=== PATIENT | male | born 1975 | race African-American/Black ===

== ENCOUNTER 2019-03-27 22:13 | Inpatient (IN) | payer MEDICAID ==
[~2019-03-27] VITALS: Ht 188 cm; Wt 84.8 kg
[2019-03-27] MEDS ORDERED: SODIUM CHLORIDE 0.9% 1,000 ML IV ONE ×2 (22:48→23:36)
[2019-03-27] MEDS ORDERED: MORPHINE SULFATE 4 MG/ML CPJ (NOT FOR IM USE) IV STA (22:48)
[2019-03-27] MEDS ORDERED: ONDANSETRON HCL 4MG/2ML INJ IV STA (22:48)
[2019-03-27] MEDS ORDERED: KETOROLAC 30MG/ML VIAL IV STA (22:48)
[2019-03-27 23:05] LABS: BASOPHILS % 0.5 % (0.0-2.0); EOSINOPHILS % 0.1 % (0.0-5.0); HEMATOCRIT. 48.1 % (42.0-52.0); HEMOGLOBIN. 15.8 g/dL (14.0-18.0); LYMPHOCYTES % 8.2 % (20.0-50.0); MEAN CORPUSCULAR HEMOGLOBIN 30.9 pg (28.0-32.0); MEAN CORPUSCULAR VOLUME 93.9 fL (80.0-94.0); MEAN PLATELET VOLUME 10.3 fl (7.4-10.4); MONOCYTES % 6.9 % (2.0-8.0); NEUTROPHILS % 84.3 % (40.0-76.0); PLATELET 252 x1000/uL (130-400); RED BLOOD CELL COUNT 5.12 mill/uL (4.7-6.1)
[2019-03-27 23:11] LABS: CHLORIDE 99 mEq/L (98-107)
[2019-03-27 23:13] LABS: ETHANOL BLOOD < 10 mg/dL
[2019-03-27 23:18] LABS: INR 0.9; PROTHROMBIN TIME 9.4 sec (9.6-11.0)
[2019-03-27] MEDS ORDERED: KETOROLAC 15MG/ML VIAL IV NR (23:45)
[2019-03-28] MEDS ORDERED: INSULIN REGULAR (DRIP) 100 UNITS in SODIUM CHLORIDE 0.9% 100 ML IV NR (00:18)
[2019-03-28] MEDS ORDERED: SODIUM CHLORIDE 0.9% 1,000 ML IV STA (00:18)
[2019-03-28 00:50] LABS: BETA HYDROXYBUTYRATE 10.8 mMol/L (0.0-0.3)
[2019-03-28 00:53] LABS: CLARITY URINE CLEAR (CLEAR); COLOR URINE YELLOW (YELLOW); KETONES URINE 4+ (NEGATIVE); LEUKOCYTE ESTERASE URINE NEGATIVE (NEGATIVE); NITRITE URINE NEGATIVE (NEGATIVE); OCCULT BLOOD URINE TRACE (NEGATIVE); PROTEIN URINE 1+ (NEGATIVE); SPECIFIC GRAVITY URINE 1.018 (1.005-1.030); UROBILINOGEN URINE 0.2 E.U./dL (0.2-1.0)
[2019-03-28 01:08] LABS: *AMPHETAMINES SCREEN URINE NEGATIVE (NEGATIVE); *BARBITURATES SCREEN URINE NEGATIVE (NEGATIVE); *BENZODIAZEPINES SCREEN URINE NEGATIVE (NEGATIVE); *COCAINE SCREEN URINE NEGATIVE (NEGATIVE); METHADONE URINE SCREEN NEGATIVE (NEGATIVE); OPIATES URINE SCREEN NEGATIVE (NEGATIVE)
[2019-03-28 01:09] LABS: CANNABINOID URINE SCREEN NEGATIVE (NEGATIVE); PHENCYCLIDINE URINE SCREEN NEGATIVE (NEGATIVE)
[2019-03-28 02:15] LABS: CHLORIDE 106 mEq/L (98-107)
[2019-03-28 02:19] LABS: PHOSPHORUS 4.5 mg/dL (2.5-4.9)
[2019-03-28 04:17] LABS: CHLORIDE 110 mEq/L (98-107)
[2019-03-28 04:23] LABS: PHOSPHORUS 3.5 mg/dL (2.5-4.9)
[2019-03-28 06:14] LABS: CHLORIDE 112 mEq/L (98-107)
[2019-03-28 06:19] LABS: PHOSPHORUS 2.9 mg/dL (2.5-4.9)
[2019-03-28 11:13] LABS: CHLORIDE 115 mEq/L (98-107)
[2019-03-28 12:17] VITALS: BP 0/0
[2019-03-28] MEDS ORDERED: ACETAMINOPHEN 325MG TABLET PO PRN (12:30)
[2019-03-28] MEDS ORDERED: IPRATROPIUM/ALBUTEROL 0.5-3(2.5)MG/3ML NEB INH PRN (12:30)
[2019-03-28] MEDS ORDERED: ONDANSETRON HCL 4MG/2ML INJ IV PRN (12:30)
[2019-03-28] MEDS ORDERED: INSULIN REGULAR (DRIP) 100 UNITS in SODIUM CHLORIDE 0.9% 100 ML IV SCH ×2 (12:30→15:00)
[2019-03-28] MEDS ORDERED: HYDROCODONE/ACETAMINOPHEN 5/325MG TABLET PO PRN (12:30)
[2019-03-28] MEDS ORDERED: DOCUSATE SODIUM 100MG CAPSULE PO PRN (12:30)
[2019-03-28] MEDS ORDERED: LORAZEPAM 2MG/ML CPJ IV PRN (12:30)
[2019-03-28] MEDS ORDERED: CLONIDINE 0.1MG TABLET PO PRN (12:30)
[2019-03-28 13:00] VITALS: BP 130/78
[2019-03-28] MEDS ORDERED: DEXTROSE 50% WATER 50ML SYRINGE IV PRN ×4 (14:30→20:00)
[2019-03-28] MEDS: BLOOD SUGAR DIAGNOSTIC STRIP TEST SCH ×3 (14:44→16:30)
[2019-03-28 18:37] LABS: CHLORIDE 112 mEq/L (98-107)
[2019-03-28] MEDS: SODIUM CHLORIDE 0.9% 1,000 ML IV SCH (19:00)
[2019-03-28 19:18] LABS: HEPATITIS B SURFACE ANTIGEN NEGATIVE
[2019-03-28 19:47] LABS: HEPATITIS A AB IGM NEGATIVE (NEGATIVE)
[2019-03-28 20:17] LABS: CHLORIDE 111 mEq/L (98-107)
[2019-03-28] MEDS: INSULIN GLARGINE UD 100 UNITS/ML SYR SUBCUT SCH (22:35)
[2019-03-29 05:49] LABS: BASOPHILS % 0.2 % (0.0-2.0); EOSINOPHILS % 0.1 % (0.0-5.0); HEMOGLOBIN. 13.3 g/dL (14.0-18.0); LYMPHOCYTES % 14.6 % (20.0-50.0); MEAN CORPUSCULAR HEMOGLOBIN 30.2 pg (28.0-32.0); MEAN CORPUSCULAR VOLUME 90.8 fL (80.0-94.0); MEAN PLATELET VOLUME 10.6 fl (7.4-10.4); MONOCYTES % 12.9 % (2.0-8.0); NEUTROPHILS % 72.2 % (40.0-76.0); PLATELET 176 x1000/uL (130-400); RED CELL DISTRIBUTION WIDTH 13.6 % (11.6-14.6)
[2019-03-29] MEDS: BLOOD SUGAR DIAGNOSTIC STRIP TEST SCH ×4 (06:07→21:15)
[2019-03-29 06:10] LABS: CHLORIDE 106 mEq/L (98-107)
[2019-03-29] MEDS: INSULIN LISPRO 100 UNITS/ML SUBCUT SCH ×4 (06:12→21:56)
[2019-03-29 06:26] LABS: LDL CHOLESTEROL 106 mg/dL (5-100)
[2019-03-29 06:27] LABS: HDL CHOLESTEROL 30 mg/dL (40-59)
[2019-03-29 09:00] VITALS: BP 118/58
[2019-03-29 10:00] VITALS: BP 135/71
[2019-03-29] MEDS: INSULIN GLARGINE UD 100 UNITS/ML SYR SUBCUT SCH ×2 (10:27→22:00)
[2019-03-29 12:00] VITALS: BP 119/62
[2019-03-29 15:08] LABS: CHLORIDE 104 mEq/L (98-107)
[2019-03-29 16:00] VITALS: BP 113/60
[2019-03-29] MEDS ORDERED: LANTUSUD SUBCUT (16:18)
[2019-03-29 20:00] VITALS: BP 118/70
[2019-03-29] MEDS: SODIUM CHLORIDE 0.9% 1,000 ML IV SCH (21:40)
[2019-03-30] VITALS: BP 123/51
[2019-03-30 04:00] VITALS: BP 128/56
[2019-03-30 05:16] LABS: HIV SCREEN 4G Non Reactive (Non Reactive)
[2019-03-30] MEDS: BLOOD SUGAR DIAGNOSTIC STRIP TEST SCH ×2 (06:19→12:13)
[2019-03-30 08:00] VITALS: BP 108/69
[2019-03-30] MEDS: INSULIN LISPRO 100 UNITS/ML SUBCUT SCH ×2 (09:05→12:18)
[2019-03-30] MEDS: INSULIN GLARGINE UD 100 UNITS/ML SYR SUBCUT SCH (10:00)
[2019-03-30 10:38] VITALS: BP 108/69
[2019-03-30] MEDS ORDERED: LANTUSUD SUBCUT (15:54)
[2019-03-30] MEDS ORDERED: INSULIN GLARGINE UD 100 UNITS/ML SYR SUBCUT NR (16:30)
[2019-03-30] MEDS ORDERED: INSULIN GLARGINE UD 100 UNITS/ML SYR SUBCUT SCH (22:00)
== END 2019-03-30 13:49 | disposition home or self-care (01) | DRG 420 ==
LOC: ER 22:13 → MICUSO 03-28 00:32 → EDBEDREQ 03-28 00:43 → EDBEDREQDT 03-28 00:43 → EDBEDREQTM 03-28 00:43 → ENRESERV 03-28 11:21 → 6EST 03-29 23:35
PROVIDERS: ADMIT Internal Medicine; ATTEND Internal Medicine
DX: E11.10 Type 2 diabetes mellitus with ketoacidosis without coma (principal); F20.9 Schizophrenia, unspecified; F31.9 Bipolar disorder, unspecified; E86.0 Dehydration; K31.89 Other diseases of stomach and duodenum; N32.89 Other specified disorders of bladder; I10 Essential (primary) hypertension; R74.0 Nonspecific elevation of levels of transaminase and lactic acid dehydrogenase [LDH]; E05.90 Thyrotoxicosis, unspecified without thyrotoxic crisis or storm; Z79.899 Other long term (current) drug therapy; Z79.4 Long term (current) use of insulin; Z91.14 Patient's other noncompliance with medication regimen
CPT/HCPCS: 36415; 74176; 80048; 80061; 80305; 80320; 82010; 82150; 82962; 83036; 83605; 83735; 84100; 84443; 84484; 86705; 86709; 86803; 87340; 87389; 93005; 96365; 96375; 99291; J1815; J1885; J2270; J2405; J7030; J7050; G0480

== ENCOUNTER 2021-11-22 15:08 | Inpatient (IN) | payer MEDICAID, OTHER ==
[~2021-11-22] VITALS: Ht 180.3 cm; Wt 61.7 kg
[~2021-11-22 15:08] MED LIST: LANTUSUD SUBCUT
[2021-11-22] MEDS ORDERED: CALCIUM GLUCONATE 1GM PREMIX 50 ML IV ONE (15:30)
[2021-11-22] MEDS ORDERED: LACTATED RINGERS 1,000 ML IV SCH ×2 (15:30)
[2021-11-22] MEDS ORDERED: FENTANYL CITRATE/PF 2,500 MCG in DEXT 5% WATER 200 ML IV PRN (15:45)
[2021-11-22] MEDS ORDERED: MIDAZOLAM 100MG/100ML PREMIX IV PRN (15:45)
[2021-11-22] MEDS ORDERED: NOREPINEPHRINE 8MG/250ML PMX 250 ML IV ONE (15:45)
[2021-11-22 15:48] LABS: HEMATOCRIT. 44.1 % (42.0-52.0); HEMOGLOBIN. 13.2 g/dL (14.0-18.0); MEAN CORPUSCULAR HEMOGLOBIN 28.1 pg (28.0-32.0); MEAN CORPUSCULAR VOLUME 93.7 fL (80.0-94.0); MEAN PLATELET VOLUME 9.7 fl (7.4-10.4); PLATELET 391 x1000/uL (130-400); RED BLOOD CELL COUNT 4.71 mill/uL (4.7-6.1); RED CELL DISTRIBUTION WIDTH 14.1 % (11.6-14.6)
[2021-11-22 15:57] LABS: BG CARBOXYHEMOGLOBIN 0.5 % (0.5-1.5); BG DEOXYHEMOGLOBIN 0.2 % (0.0-5.0); BG FRACTION INSPIRED OXYGEN 100; BG HCO3 ACT 4.1 mmol/L (22.0-26.0); BG METHEMOGLOBIN 0.4 % (0.0-1.5); BG OXYGEN SATURATION 99.8 % (92.0-98.5); BG OXYHEMOGLOBIN 98.9 % (94.0-97.0); BG PCO2 30.6 mmHg (35.0-45.0); BG PH 6.743 (7.350-7.450); BG PO2 547.5 mmHg (75.0-100.0); BG TOTAL HEMOGLOBIN 12.8 g/dL (12.0-18.0); BG VENT MODE VENT - AC
[2021-11-22] MEDS ORDERED: MIDAZOLAM HCL 100 MG in SODIUM CHLORIDE 0.9% 100 ML IV PRN (16:00)
[2021-11-22 16:06] LABS: CLARITY URINE CLEAR (CLEAR); COLOR URINE YELLOW (YELLOW); KETONES URINE 3+ (NEGATIVE); LEUKOCYTE ESTERASE URINE NEGATIVE (NEGATIVE); NITRITE URINE NEGATIVE (NEGATIVE); OCCULT BLOOD URINE 1+ (NEGATIVE); PROTEIN URINE 2+ (NEGATIVE); SPECIFIC GRAVITY URINE 1.017 (1.005-1.030); UROBILINOGEN URINE 0.2 E.U./dL (0.2-1.0)
[2021-11-22 16:13] LABS: CHLORIDE 100 mEq/L (98-107)
[2021-11-22 16:17] LABS: *AMPHETAMINES SCREEN URINE NEGATIVE (NEGATIVE); *BARBITURATES SCREEN URINE NEGATIVE (NEGATIVE)
[2021-11-22 16:17] LABS: ETHANOL BLOOD < 10 mg/dL
[2021-11-22 16:18] LABS: *BENZODIAZEPINES SCREEN URINE NEGATIVE (NEGATIVE); *COCAINE SCREEN URINE NEGATIVE (NEGATIVE); CANNABINOID URINE SCREEN NEGATIVE (NEGATIVE); METHADONE URINE SCREEN NEGATIVE (NEGATIVE); OPIATES URINE SCREEN NEGATIVE (NEGATIVE); PHENCYCLIDINE URINE SCREEN NEGATIVE (NEGATIVE)
[2021-11-22] MEDS ORDERED: METRONIDAZOLE 500 MG PREMIX 100 ML IV ONE (16:30)
[2021-11-22] MEDS ORDERED: VANCOMYCIN 1G PREMIX 200 ML IV ONE (16:30)
[2021-11-22] MEDS ORDERED: HYDROCORTISONE SOD SUCCINATE 100 MG/2 ML VIAL IV ONE (16:30)
[2021-11-22] MEDS ORDERED: PIPERACILLIN/TAZ 3.375G PREMIX 50 ML IV ONE (16:30)
[2021-11-22] MEDS ORDERED: SODIUM BICARBONATE 8.4% 1 MEQ/ML 50ML SYR IV ONE ×3 (16:30→19:15)
[2021-11-22] MEDS ORDERED: SODIUM CHLORIDE 0.9% 1000ML BAG (SEPSIS BOLUS) IV ONE (16:30)
[2021-11-22] MEDS ORDERED: DEXTROSE 50% WATER 50ML SYRINGE IV PRN (16:45)
[2021-11-22] MEDS ORDERED: VANCOMYCIN 1GM PMX (XELLIA) 200 ML IV NR (16:45)
[2021-11-22] MEDS ORDERED: VANCOMYCIN 1G PREMIX 200 ML IV NR (16:45)
[2021-11-22] MEDS ORDERED: INSULIN REGULAR 100U/100ML PMX 100 ML IV SCH (17:00)
[2021-11-22] MEDS: SODIUM BICARBONATE 150 MEQ in SODIUM CHLORIDE 0.45% 1,000 ML IV SCH (17:32)
[2021-11-22] MEDS: BLOOD SUGAR DIAGNOSTIC STRIP TEST SCH ×7 (17:32→23:00)
[2021-11-22 17:54] LABS: BETA HYDROXYBUTYRATE 13.5 mMol/L (0.0-0.3)
[2021-11-22 18:50] LABS: BG BASE EXCESS -27.4 mmol/L (-2.0-2.0); BG CARBOXYHEMOGLOBIN 0.4 % (0.5-1.5); BG DEOXYHEMOGLOBIN 0.3 % (0.0-5.0); BG FRACTION INSPIRED OXYGEN 100; BG HCO3 ACT 5.6 mmol/L (22.0-26.0); BG METHEMOGLOBIN 0.4 % (0.0-1.5); BG OXYGEN SATURATION 99.7 % (92.0-98.5); BG OXYHEMOGLOBIN 98.9 % (94.0-97.0); BG PCO2 32.2 mmHg (35.0-45.0); BG PH 6.855 (7.350-7.450); BG PO2 > 602.7 mmHg (75.0-100.0); BG SAMPLE SITE RIGHT RADIAL; BG TOTAL HEMOGLOBIN 12.6 g/dL (12.0-18.0); BG VENT MODE VENT - AC
[2021-11-22 20:16] LABS: PLATELET ESTIMATE NORMAL
[2021-11-23 00:25] LABS: CHLORIDE 112 mEq/L (98-107)
[2021-11-23] MEDS ORDERED: SODIUM CHLORIDE 0.9% 1,000 ML IV SCH (00:45)
[2021-11-23] MEDS: BLOOD SUGAR DIAGNOSTIC STRIP TEST SCH ×18 (01:00→21:24)
[2021-11-23] MEDS ORDERED: NOREPINEPHRINE 8 MG in DEXTROSE 5% WATER 250 ML IV PRN (01:00)
[2021-11-23] MEDS ORDERED: INSULIN REGULAR (DRIP) 100 UNITS in SODIUM CHLORIDE 0.9% 100 ML IV PRN (01:00)
[2021-11-23] MEDS ORDERED: INSULIN REGULAR 100U/100ML PMX 100 ML IV PRN (01:00)
[2021-11-23] MEDS: SODIUM BICARBONATE 150 MEQ in SODIUM CHLORIDE 0.45% 1,000 ML IV SCH ×2 (03:00→11:46)
[2021-11-23 03:21] LABS: CHLORIDE 113 mEq/L (98-107)
[2021-11-23] MEDS ORDERED: POTASSIUM CHLORIDE 20MEQ/PACKET NG SCH (05:00)
[2021-11-23] MEDS ORDERED: DEXTROSE 5% WATER 1,000 ML IV SCH (05:00)
[2021-11-23 08:23] LABS: CHLORIDE 117 mEq/L (98-107)
[2021-11-23 08:59] LABS: PHOSPHORUS 0.4 mg/dL (2.5-4.9)
[2021-11-23] MEDS ORDERED: MIDAZOLAM 100MG/100ML PMX 100 ML IV PRN (09:00)
[2021-11-23] MEDS: ENOXAPARIN 40MG/0.4ML SYR SUBCUT SCH (09:02)
[2021-11-23] MEDS ORDERED: CLONIDINE 0.1MG TABLET PO PRN (09:45)
[2021-11-23] MEDS ORDERED: ACETAMINOPHEN 650MG/20.3ML UDC GT PRN ×2 (09:45)
[2021-11-23] MEDS ORDERED: ONDANSETRON HCL 4MG/2ML INJ IV PRN (09:45)
[2021-11-23] MEDS ORDERED: IPRATROPIUM/ALBUTEROL 0.5-3(2.5)MG/3ML NEB HHN PRN (09:45)
[2021-11-23] MEDS ORDERED: CEFTRIAXONE 1 G PREMIX 50 ML IV SCH (10:00)
[2021-11-23] MEDS ORDERED: DEXTROSE 50% WATER 50ML SYRINGE IV PRN (10:30)
[2021-11-23] MEDS: METRONIDAZOLE 500 MG PREMIX 100 ML IV SCH ×2 (10:35→18:12)
[2021-11-23] MEDS: INSULIN GLARGINE UD 100 UNITS/ML SYR SUBCUT SCH ×3 (11:00→22:27)
[2021-11-23] MEDS ORDERED: POTASSIUM PHOS,M-BASIC-D-BASIC 30 MMOL in SODIUM CHLORIDE 0.9% 500 ML IV SCH (11:00)
[2021-11-23 11:36] LABS: CHLORIDE 115 mEq/L (98-107)
[2021-11-23 11:41] LABS: AMYLASE 82 IU/L (25-115)
[2021-11-23 11:52] LABS: BG CARBOXYHEMOGLOBIN 0.3 % (0.5-1.5); BG DEOXYHEMOGLOBIN 1.2 % (0.0-5.0); BG FRACTION INSPIRED OXYGEN 60; BG HCO3 ACT 25.3 mmol/L (22.0-26.0); BG METHEMOGLOBIN 0.6 % (0.0-1.5); BG OXYGEN SATURATION 98.8 % (92.0-98.5); BG OXYHEMOGLOBIN 97.9 % (94.0-97.0); BG PCO2 35.2 mmHg (35.0-45.0); BG PH 7.475 (7.350-7.450); BG PO2 325.4 mmHg (75.0-100.0); BG SAMPLE SITE RIGHT RADIAL; BG TOTAL HEMOGLOBIN 11.5 g/dL (12.0-18.0); BG VENT MODE VENT - AC
[2021-11-23] MEDS: INSULIN LISPRO 100 UNITS/ML SUBCUT SCH ×3 (12:00→21:00)
[2021-11-23] MEDS: SODIUM CHLORIDE 0.45% 1,000 ML IV SCH (14:15)
[2021-11-23] MEDS: MIDAZOLAM HCL 100 MG in SODIUM CHLORIDE 0.9% 100 ML IV PRN (17:45)
[2021-11-24] VITALS (42 sets, daily range): BP systolic 94–123; BP diastolic 69–91
[2021-11-24] MEDS: SODIUM CHLORIDE 0.45% 1,000 ML IV SCH (01:23)
[2021-11-24] MEDS: METRONIDAZOLE 500 MG PREMIX 100 ML IV SCH ×4 (03:08→21:25)
[2021-11-24] MEDS: BLOOD SUGAR DIAGNOSTIC STRIP TEST SCH ×4 (04:00→21:29)
[2021-11-24 05:15] LABS: HEMATOCRIT. 34.9 % (42.0-52.0); HEMOGLOBIN. 11.6 g/dL (14.0-18.0); MEAN CORPUSCULAR HEMOGLOBIN 28.3 pg (28.0-32.0); MEAN PLATELET VOLUME 8.6 fl (7.4-10.4); PLATELET 237 x1000/uL (130-400); RED CELL DISTRIBUTION WIDTH 13.5 % (11.6-14.6)
[2021-11-24 05:29] LABS: CHLORIDE 115 mEq/L (98-107)
[2021-11-24] MEDS: INSULIN LISPRO 100 UNITS/ML SUBCUT SCH ×4 (07:20→21:25)
[2021-11-24] MEDS ORDERED: POTASSIUM CHLORIDE INJ 60 MEQ in DEXT 5% WATER 250 ML IV ONE ×2 (07:30→22:00)
[2021-11-24] MEDS: DEXTROSE 5% WATER 1,000 ML IV SCH ×2 (08:05→17:21)
[2021-11-24] MEDS: KCL 20MEQ/100ML X 2 FOR TOTAL KCL 40MEQ/200ML IV SCH ×4 (08:06→22:41)
[2021-11-24 08:20] LABS: BG BASE EXCESS 2.4 mmol/L (-2.0-2.0); BG CARBOXYHEMOGLOBIN 0.3 % (0.5-1.5); BG DEOXYHEMOGLOBIN 1.4 % (0.0-5.0); BG FRACTION INSPIRED OXYGEN 40; BG HCO3 ACT 26.7 mmol/L (22.0-26.0); BG METHEMOGLOBIN 0.1 % (0.0-1.5); BG OXYGEN SATURATION 98.6 % (92.0-98.5); BG OXYHEMOGLOBIN 98.2 % (94.0-97.0); BG PCO2 39.9 mmHg (35.0-45.0); BG PH 7.443 (7.350-7.450); BG PO2 193.4 mmHg (75.0-100.0); BG SAMPLE SITE RIGHT RADIAL; BG TOTAL HEMOGLOBIN 11.1 g/dL (12.0-18.0); BG VENT MODE VENT - AC
[2021-11-24 09:48] LABS: PLATELET ESTIMATE NORMAL
[2021-11-24] MEDS: CEFTRIAXONE 1,000 MG in DEXTROSE 5% WATER 50 ML IV SCH (10:42)
[2021-11-24] MEDS: ENOXAPARIN 40MG/0.4ML SYR SUBCUT SCH (10:42)
[2021-11-24] MEDS: INSULIN GLARGINE UD 100 UNITS/ML SYR SUBCUT SCH ×2 (11:18→21:24)
[2021-11-24] MEDS ORDERED: FENTANYL CITRATE/PF 2,500 MCG in SODIUM CHLORIDE 0.9% 200 ML IV PRN (11:30)
[2021-11-24] MEDS ORDERED: METRONIDAZOLE 500 MG PREMIX 100 ML IV SCH (12:00)
[2021-11-24] MEDS: PANTOPRAZOLE SODIUM 40 MG/VIAL IV SCH (13:01)
[2021-11-24] MEDS ORDERED: VANCOMYCIN 1.25GM PMX (XELLIA) 250 ML IV SCH (14:00)
[2021-11-24] MEDS: MIDAZOLAM HCL 100 MG in SODIUM CHLORIDE 0.9% 100 ML IV PRN (22:43)
[2021-11-25] VITALS (77 sets, daily range): BP systolic 97–139; BP diastolic 73–110
[2021-11-25] MEDS ORDERED: VANCOMYCIN 1GM PMX (XELLIA) 200 ML IV SCH
[2021-11-25] MEDS: KCL 20MEQ/100ML X 2 FOR TOTAL KCL 40MEQ/200ML IV SCH ×2 (00:21→03:02)
[2021-11-25] MEDS: DEXTROSE 5% WATER 1,000 ML IV SCH ×3 (03:06→22:35)
[2021-11-25] MEDS: METRONIDAZOLE 500 MG PREMIX 100 ML IV SCH ×3 (05:56→21:09)
[2021-11-25 06:21] LABS: BASOPHILS % 0.6 % (0.0-2.0); EOSINOPHILS % 0.2 % (0.0-5.0); HEMATOCRIT. 31.7 % (42.0-52.0); HEMOGLOBIN. 10.6 g/dL (14.0-18.0); LYMPHOCYTES % 9.2 % (20.0-50.0); MEAN CORPUSCULAR HEMOGLOBIN 28.4 pg (28.0-32.0); MEAN CORPUSCULAR VOLUME 85.3 fL (80.0-94.0); MEAN PLATELET VOLUME 8.9 fl (7.4-10.4); MONOCYTES % 9.5 % (2.0-8.0); NEUTROPHILS % 80.5 % (40.0-76.0); PLATELET 198 x1000/uL (130-400); RED BLOOD CELL COUNT 3.72 mill/uL (4.7-6.1); RED CELL DISTRIBUTION WIDTH 13.8 % (11.6-14.6)
[2021-11-25 06:36] LABS: CHLORIDE 115 mEq/L (98-107)
[2021-11-25] MEDS: BLOOD SUGAR DIAGNOSTIC STRIP TEST SCH ×4 (07:50→21:01)
[2021-11-25] MEDS: INSULIN LISPRO 100 UNITS/ML SUBCUT SCH ×4 (08:20→21:00)
[2021-11-25] MEDS: PANTOPRAZOLE SODIUM 40 MG/VIAL IV SCH (08:29)
[2021-11-25] MEDS: ENOXAPARIN 40MG/0.4ML SYR SUBCUT SCH (08:29)
[2021-11-25] MEDS ORDERED: POTASSIUM PHOS,M-BASIC-D-BASIC 30 MMOL in DEXT 5% WATER 500 ML IV SCH (09:00)
[2021-11-25 09:13] LABS: BG BASE EXCESS 2.7 mmol/L (-2.0-2.0); BG CARBOXYHEMOGLOBIN 0.3 % (0.5-1.5); BG DEOXYHEMOGLOBIN 1.2 % (0.0-5.0); BG FRACTION INSPIRED OXYGEN 35; BG METHEMOGLOBIN 0.1 % (0.0-1.5); BG OXYGEN SATURATION 98.8 % (92.0-98.5); BG OXYHEMOGLOBIN 98.4 % (94.0-97.0); BG PH 7.489 (7.350-7.450); BG PO2 187.3 mmHg (75.0-100.0); BG SAMPLE SITE LEFT RADIAL; BG TOTAL HEMOGLOBIN 9.9 g/dL (12.0-18.0); BG TOTAL RESPIRATORY RATE 14 b/min; BG VENT MODE VENT - AC
[2021-11-25] MEDS: CEFTRIAXONE 1,000 MG in DEXTROSE 5% WATER 50 ML IV SCH (09:35)
[2021-11-25] MEDS: INSULIN GLARGINE UD 100 UNITS/ML SYR SUBCUT SCH ×2 (09:38→21:54)
[2021-11-25] MEDS: METOCLOPRAMIDE HCL 10MG/2ML VIAL IV SCH (17:45)
[2021-11-25] MEDS: DOCUSATE SODIUM SUGAR FREE 100MG/10ML UDC NG SCH (17:45)
[2021-11-25] MEDS: VANCOMYCIN 1GM PMX (XELLIA) 200 ML IV SCH (21:09)
[2021-11-26] VITALS (94 sets, daily range): BP systolic 107–141; BP diastolic 40–96
[2021-11-26] MEDS: METOCLOPRAMIDE HCL 10MG/2ML VIAL IV SCH ×4 (00:12→18:15)
[2021-11-26] MEDS: METRONIDAZOLE 500 MG PREMIX 100 ML IV SCH ×3 (05:22→21:05)
[2021-11-26 06:09] LABS: BASOPHILS % 0.8 % (0.0-2.0); EOSINOPHILS % 1.6 % (0.0-5.0); HEMATOCRIT. 30.3 % (42.0-52.0); HEMOGLOBIN. 10.4 g/dL (14.0-18.0); LYMPHOCYTES % 11.5 % (20.0-50.0); MEAN CORPUSCULAR HEMOGLOBIN 29.3 pg (28.0-32.0); MEAN CORPUSCULAR VOLUME 85.2 fL (80.0-94.0); MEAN PLATELET VOLUME 9.1 fl (7.4-10.4); NEUTROPHILS % 74.1 % (40.0-76.0); PLATELET 181 x1000/uL (130-400); RED BLOOD CELL COUNT 3.55 mill/uL (4.7-6.1); RED CELL DISTRIBUTION WIDTH 13.9 % (11.6-14.6)
[2021-11-26 06:17] LABS: CHLORIDE 110 mEq/L (98-107)
[2021-11-26 06:28] LABS: PHOSPHORUS 2.1 mg/dL (2.5-4.9)
[2021-11-26] MEDS: BLOOD SUGAR DIAGNOSTIC STRIP TEST SCH ×4 (08:28→23:42)
[2021-11-26] MEDS ORDERED: MAGNESIUM 2 G PREMIX 50 ML IV NR (08:30)
[2021-11-26 08:51] LABS: BG BASE EXCESS 3.6 mmol/L (-2.0-2.0); BG DEOXYHEMOGLOBIN 1.2 % (0.0-5.0); BG FRACTION INSPIRED OXYGEN 35; BG METHEMOGLOBIN 0.3 % (0.0-1.5); BG OXYGEN SATURATION 98.8 % (92.0-98.5); BG OXYHEMOGLOBIN 98.5 % (94.0-97.0); BG PCO2 36.1 mmHg (35.0-45.0); BG PH 7.491 (7.350-7.450); BG PO2 164.4 mmHg (75.0-100.0); BG SAMPLE SITE LEFT BRACHIAL; BG TOTAL RESPIRATORY RATE 15 b/min; BG VENT MODE VENT - AC
[2021-11-26] MEDS ORDERED: POTASSIUM PHOS,M-BASIC-D-BASIC 20 MMOL in DEXT 5% WATER 243.3333 ML IV SCH (09:00)
[2021-11-26] MEDS: ENOXAPARIN 40MG/0.4ML SYR SUBCUT SCH (09:06)
[2021-11-26] MEDS: PANTOPRAZOLE SODIUM 40 MG/VIAL IV SCH (09:06)
[2021-11-26] MEDS: CEFTRIAXONE 1,000 MG in DEXTROSE 5% WATER 50 ML IV SCH (09:06)
[2021-11-26] MEDS: DOCUSATE SODIUM SUGAR FREE 100MG/10ML UDC NG SCH ×2 (09:06→18:15)
[2021-11-26] MEDS: INSULIN LISPRO 100 UNITS/ML SUBCUT SCH ×4 (09:07→23:42)
[2021-11-26] MEDS: INSULIN GLARGINE UD 100 UNITS/ML SYR SUBCUT SCH ×2 (09:07→21:03)
[2021-11-26 12:41] LABS: BG BASE EXCESS 3.4 mmol/L (-2.0-2.0); BG CARBOXYHEMOGLOBIN 0.3 % (0.5-1.5); BG DEOXYHEMOGLOBIN 1.8 % (0.0-5.0); BG FRACTION INSPIRED OXYGEN 30; BG HCO3 ACT 26.7 mmol/L (22.0-26.0); BG METHEMOGLOBIN 0.3 % (0.0-1.5); BG OXYGEN SATURATION 98.2 % (92.0-98.5); BG OXYHEMOGLOBIN 97.6 % (94.0-97.0); BG PCO2 35.5 mmHg (35.0-45.0); BG PH 7.494 (7.350-7.450); BG PO2 127.8 mmHg (75.0-100.0); BG SAMPLE SITE LEFT RADIAL; BG TOTAL HEMOGLOBIN 10.5 g/dL (12.0-18.0); BG TOTAL RESPIRATORY RATE 16 b/min; BG VENT MODE VENT - CPAP
[2021-11-26] MEDS: VANCOMYCIN 1GM PMX (XELLIA) 200 ML IV SCH (13:57)
[2021-11-27] VITALS (21 sets, daily range): BP systolic 99–155; BP diastolic 64–88
[2021-11-27] MEDS: METOCLOPRAMIDE HCL 10MG/2ML VIAL IV SCH ×3 (00:15→12:00)
[2021-11-27 05:41] LABS: BASOPHILS % 0.8 % (0.0-2.0); EOSINOPHILS % 1.3 % (0.0-5.0); HEMATOCRIT. 30.6 % (42.0-52.0); HEMOGLOBIN. 10.3 g/dL (14.0-18.0); LYMPHOCYTES % 11.6 % (20.0-50.0); MEAN CORPUSCULAR HEMOGLOBIN 28.8 pg (28.0-32.0); MEAN CORPUSCULAR VOLUME 85.5 fL (80.0-94.0); MEAN PLATELET VOLUME 8.9 fl (7.4-10.4); MONOCYTES % 14.5 % (2.0-8.0); NEUTROPHILS % 71.8 % (40.0-76.0); PLATELET 216 x1000/uL (130-400); RED BLOOD CELL COUNT 3.58 mill/uL (4.7-6.1)
[2021-11-27] MEDS: INSULIN LISPRO 100 UNITS/ML SUBCUT SCH ×4 (05:54→21:24)
[2021-11-27] MEDS: BLOOD SUGAR DIAGNOSTIC STRIP TEST SCH ×4 (05:54→20:25)
[2021-11-27] MEDS: METRONIDAZOLE 500 MG PREMIX 100 ML IV SCH ×3 (05:59→21:21)
[2021-11-27 06:01] LABS: CHLORIDE 113 mEq/L (98-107)
[2021-11-27 06:09] LABS: PHOSPHORUS 2.7 mg/dL (2.5-4.9)
[2021-11-27] MEDS: ENOXAPARIN 40MG/0.4ML SYR SUBCUT SCH (08:24)
[2021-11-27] MEDS: VANCOMYCIN 1GM PMX (XELLIA) 200 ML IV SCH (08:24)
[2021-11-27] MEDS: PANTOPRAZOLE SODIUM 40 MG/VIAL IV SCH (08:24)
[2021-11-27] MEDS: DOCUSATE SODIUM SUGAR FREE 100MG/10ML UDC NG SCH ×2 (08:25→16:05)
[2021-11-27] MEDS ORDERED: POTASSIUM CHLORIDE 20MEQ/PACKET PO NR (09:00)
[2021-11-27] MEDS: INSULIN GLARGINE UD 100 UNITS/ML SYR SUBCUT SCH ×2 (10:00→21:23)
[2021-11-27] MEDS: CEFTRIAXONE 1,000 MG in DEXTROSE 5% WATER 50 ML IV SCH (11:08)
[2021-11-28] VITALS: BP 112/73
[2021-11-28] MEDS: VANCOMYCIN 1GM PMX (XELLIA) 200 ML IV SCH (01:56)
[2021-11-28 04:00] VITALS: BP 118/76
[2021-11-28 04:07] LABS: HIV SCREEN 4G Non Reactive (Non Reactive)
[2021-11-28] MEDS: METRONIDAZOLE 500 MG PREMIX 100 ML IV SCH (05:10)
[2021-11-28] MEDS: BLOOD SUGAR DIAGNOSTIC STRIP TEST SCH ×4 (05:58→21:00)
[2021-11-28] MEDS: INSULIN LISPRO 100 UNITS/ML SUBCUT SCH ×4 (05:58→23:45)
[2021-11-28 06:02] LABS: HEMATOCRIT. 30.2 % (42.0-52.0); MEAN CORPUSCULAR HEMOGLOBIN 28.5 pg (28.0-32.0); PLATELET 248 x1000/uL (130-400); RED BLOOD CELL COUNT 3.51 mill/uL (4.7-6.1); RED CELL DISTRIBUTION WIDTH 14.1 % (11.6-14.6)
[2021-11-28 08:00] VITALS: BP_SYST 115; BP_SYST 168; BP_DIAS 62; BP_DIAS 77
[2021-11-28] MEDS: DOCUSATE SODIUM SUGAR FREE 100MG/10ML UDC NG SCH ×2 (09:00→17:00)
[2021-11-28] MEDS: ENOXAPARIN 40MG/0.4ML SYR SUBCUT SCH (09:28)
[2021-11-28] MEDS: PANTOPRAZOLE SODIUM 40 MG/VIAL IV SCH (09:28)
[2021-11-28] MEDS: PSYLLIUM SEED PACKET PO SCH ×3 (10:00→17:21)
[2021-11-28 10:57] LABS: CHLORIDE 117 mEq/L (98-107)
[2021-11-28 12:00] VITALS: BP 108/68
[2021-11-28 12:28] LABS: NUCLEATED RED BLOOD CELLS 1 /100 WBC; PLATELET ESTIMATE NORMAL
[2021-11-28] MEDS ORDERED: POTASSIUM CHLORIDE 20MEQ/PACKET PO NR (13:00)
[2021-11-28] MEDS: METRONIDAZOLE 500MG TABLET PO SCH ×2 (14:22→21:42)
[2021-11-28] MEDS: SODIUM CHL 0.45% + KCL 20MEQ/L 1,000 ML IV SCH (14:58)
[2021-11-28 16:00] VITALS: BP 124/82
[2021-11-28 20:00] VITALS: BP 102/69
[2021-11-28] MEDS: INSULIN GLARGINE UD 100 UNITS/ML SYR SUBCUT SCH (22:00)
[2021-11-29 00:27] VITALS: BP 112/64
[2021-11-29] MEDS: SODIUM CHL 0.45% + KCL 20MEQ/L 1,000 ML IV SCH ×2 (03:04→17:09)
[2021-11-29 04:00] VITALS: BP 124/87
[2021-11-29] MEDS: VANCOMYCIN 750MG PREMIX 150 ML IV SCH ×2 (05:12→23:12)
[2021-11-29] MEDS: BLOOD SUGAR DIAGNOSTIC STRIP TEST SCH ×4 (06:16→21:39)
[2021-11-29] MEDS: INSULIN LISPRO 100 UNITS/ML SUBCUT SCH ×4 (06:26→22:16)
[2021-11-29 08:00] VITALS: BP 107/76
[2021-11-29 08:33] LABS: HEMATOCRIT. 28.8 % (42.0-52.0); HEMOGLOBIN. 9.7 g/dL (14.0-18.0); MEAN CORPUSCULAR HEMOGLOBIN 29.1 pg (28.0-32.0); MEAN CORPUSCULAR VOLUME 86.7 fL (80.0-94.0); PLATELET 288 x1000/uL (130-400); RED BLOOD CELL COUNT 3.33 mill/uL (4.7-6.1); RED CELL DISTRIBUTION WIDTH 14.2 % (11.6-14.6)
[2021-11-29] MEDS: PANTOPRAZOLE SODIUM 40 MG/VIAL IV SCH (08:34)
[2021-11-29] MEDS: PSYLLIUM SEED PACKET PO SCH ×3 (08:35→17:09)
[2021-11-29] MEDS: ENOXAPARIN 40MG/0.4ML SYR SUBCUT SCH (08:35)
[2021-11-29] MEDS: DOCUSATE SODIUM SUGAR FREE 100MG/10ML UDC NG SCH ×2 (08:42→17:09)
[2021-11-29 08:44] LABS: CHLORIDE 112 mEq/L (98-107)
[2021-11-29 09:20] LABS: PLATELET ESTIMATE NORMAL
[2021-11-29 12:00] VITALS: BP 111/73
[2021-11-29 16:00] VITALS: BP 110/70
[2021-11-29 20:00] VITALS: BP 100/64
[2021-11-29] MEDS: INSULIN GLARGINE UD 100 UNITS/ML SYR SUBCUT SCH (22:14)
[2021-11-30] VITALS: BP 110/69
[2021-11-30 04:00] VITALS: BP 97/62
[2021-11-30] MEDS: INSULIN LISPRO 100 UNITS/ML SUBCUT SCH ×4 (05:51→21:26)
[2021-11-30] MEDS: BLOOD SUGAR DIAGNOSTIC STRIP TEST SCH ×4 (05:52→21:27)
[2021-11-30 08:00] VITALS: BP 119/84
[2021-11-30] MEDS: PSYLLIUM SEED PACKET PO SCH ×3 (08:47→16:50)
[2021-11-30] MEDS: DOCUSATE SODIUM SUGAR FREE 100MG/10ML UDC NG SCH ×2 (08:48→16:50)
[2021-11-30] MEDS: PANTOPRAZOLE SODIUM 40 MG/VIAL IV SCH (08:48)
[2021-11-30] MEDS: ENOXAPARIN 40MG/0.4ML SYR SUBCUT SCH (08:49)
[2021-11-30 12:00] VITALS: BP 125/73
[2021-11-30 16:00] VITALS: BP 107/71
[2021-11-30 16:18] LABS: CREATINE KINASE 56 IU/L (39-308)
[2021-11-30] MEDS: SODIUM CHL 0.45% + KCL 20MEQ/L 1,000 ML IV SCH (16:50)
[2021-11-30] MEDS: VANCOMYCIN 750MG PREMIX 150 ML IV SCH (16:51)
[2021-11-30 20:00] VITALS: BP 101/65
[2021-11-30] MEDS: INSULIN GLARGINE UD 100 UNITS/ML SYR SUBCUT SCH (21:27)
[2021-12-01] VITALS: BP 105/66
[2021-12-01 04:00] VITALS: BP 104/64
[2021-12-01 06:22] LABS: HEMATOCRIT. 29.6 % (42.0-52.0); MEAN CORPUSCULAR HEMOGLOBIN 29.1 pg (28.0-32.0); MEAN CORPUSCULAR VOLUME 85.9 fL (80.0-94.0); MEAN PLATELET VOLUME 8.4 fl (7.4-10.4); PLATELET 394 x1000/uL (130-400); RED BLOOD CELL COUNT 3.45 mill/uL (4.7-6.1); RED CELL DISTRIBUTION WIDTH 14.1 % (11.6-14.6)
[2021-12-01 06:36] LABS: CHLORIDE 111 mEq/L (98-107)
[2021-12-01] MEDS: INSULIN LISPRO 100 UNITS/ML SUBCUT SCH ×4 (07:15→21:53)
[2021-12-01] MEDS: BLOOD SUGAR DIAGNOSTIC STRIP TEST SCH ×4 (07:22→21:00)
[2021-12-01 08:00] VITALS: BP 112/70
[2021-12-01] MEDS: PSYLLIUM SEED PACKET PO SCH ×3 (08:44→17:39)
[2021-12-01] MEDS: SODIUM CHL 0.45% + KCL 20MEQ/L 1,000 ML IV SCH ×2 (08:44→21:15)
[2021-12-01] MEDS: PANTOPRAZOLE SODIUM 40 MG/VIAL IV SCH (08:44)
[2021-12-01] MEDS: DOCUSATE SODIUM SUGAR FREE 100MG/10ML UDC NG SCH ×2 (08:44→17:39)
[2021-12-01] MEDS: ENOXAPARIN 40MG/0.4ML SYR SUBCUT SCH (08:45)
[2021-12-01 12:00] VITALS: BP 111/74
[2021-12-01] MEDS: VANCOMYCIN 750MG PREMIX 150 ML IV SCH (12:33)
[2021-12-01 15:59] LABS: PLATELET ESTIMATE NORMAL
[2021-12-01 16:00] VITALS: BP 98/56
[2021-12-01 20:00] VITALS: BP 105/57
[2021-12-01] MEDS: INSULIN GLARGINE UD 100 UNITS/ML SYR SUBCUT SCH (21:53)
[2021-12-02] VITALS: BP 111/74
[2021-12-02 04:00] VITALS: BP 113/78
[2021-12-02] MEDS: VANCOMYCIN 750MG PREMIX 150 ML IV SCH ×2 (05:37→23:26)
[2021-12-02] MEDS: INSULIN LISPRO 100 UNITS/ML SUBCUT SCH ×4 (06:35→21:47)
[2021-12-02] MEDS: BLOOD SUGAR DIAGNOSTIC STRIP TEST SCH ×4 (06:35→21:40)
[2021-12-02 07:57] VITALS: BP 103/69
[2021-12-02] MEDS: PANTOPRAZOLE SODIUM 40 MG/VIAL IV SCH (09:00)
[2021-12-02] MEDS: PSYLLIUM SEED PACKET PO SCH ×3 (09:00→18:23)
[2021-12-02] MEDS: ENOXAPARIN 40MG/0.4ML SYR SUBCUT SCH (09:01)
[2021-12-02] MEDS: DOCUSATE SODIUM 100MG CAPSULE PO PRN ×3 (09:02→18:23)
[2021-12-02] MEDS: DOCUSATE SODIUM SUGAR FREE 100MG/10ML UDC NG SCH ×2 (09:05→17:00)
[2021-12-02 12:00] VITALS: BP 111/81
[2021-12-02] MEDS: SODIUM CHL 0.45% + KCL 20MEQ/L 1,000 ML IV SCH ×2 (12:03→23:55)
[2021-12-02 16:00] VITALS: BP 114/73
[2021-12-02 20:00] VITALS: BP 114/74
[2021-12-02] MEDS: INSULIN GLARGINE UD 100 UNITS/ML SYR SUBCUT SCH (22:43)
[2021-12-03] VITALS: BP 111/73
[2021-12-03 04:00] VITALS: BP 109/68
[2021-12-03] MEDS: BLOOD SUGAR DIAGNOSTIC STRIP TEST SCH ×4 (06:28→21:23)
[2021-12-03] MEDS: INSULIN LISPRO 100 UNITS/ML SUBCUT SCH ×4 (06:37→21:37)
[2021-12-03 08:00] VITALS: BP 113/66
[2021-12-03] MEDS: PSYLLIUM SEED PACKET PO SCH ×3 (08:58→17:04)
[2021-12-03] MEDS: PANTOPRAZOLE SODIUM 40 MG/VIAL IV SCH (08:58)
[2021-12-03] MEDS: ENOXAPARIN 40MG/0.4ML SYR SUBCUT SCH (08:59)
[2021-12-03] MEDS: DOCUSATE SODIUM SUGAR FREE 100MG/10ML UDC NG SCH ×2 (09:01→17:04)
[2021-12-03 12:00] VITALS: BP 120/73
[2021-12-03] MEDS: SODIUM CHL 0.45% + KCL 20MEQ/L 1,000 ML IV SCH (12:47)
[2021-12-03 16:00] VITALS: BP 116/74
[2021-12-03] MEDS: VANCOMYCIN 750MG PREMIX 150 ML IV SCH (17:04)
[2021-12-03 20:00] VITALS: BP 120/73
[2021-12-03] MEDS: INSULIN GLARGINE UD 100 UNITS/ML SYR SUBCUT SCH (21:37)
[2021-12-04] VITALS: BP 122/76
[2021-12-04 04:00] VITALS: BP 127/72
[2021-12-04] MEDS: BLOOD SUGAR DIAGNOSTIC STRIP TEST SCH ×4 (06:27→20:53)
[2021-12-04] MEDS: INSULIN LISPRO 100 UNITS/ML SUBCUT SCH ×4 (06:36→21:28)
[2021-12-04 08:00] VITALS: BP 120/74
[2021-12-04] MEDS: PANTOPRAZOLE SODIUM 40 MG/VIAL IV SCH (09:38)
[2021-12-04] MEDS: DOCUSATE SODIUM SUGAR FREE 100MG/10ML UDC NG SCH ×2 (09:38→17:00)
[2021-12-04] MEDS: ENOXAPARIN 40MG/0.4ML SYR SUBCUT SCH (09:39)
[2021-12-04] MEDS: PSYLLIUM SEED PACKET PO SCH ×3 (09:39→17:00)
[2021-12-04 10:31] LABS: BASOPHILS % 2.2 % (0.0-2.0); EOSINOPHILS % 2.9 % (0.0-5.0); HEMATOCRIT. 26.1 % (42.0-52.0); HEMOGLOBIN. 8.8 g/dL (14.0-18.0); LYMPHOCYTES % 17.8 % (20.0-50.0); MEAN CORPUSCULAR HEMOGLOBIN 28.7 pg (28.0-32.0); MEAN CORPUSCULAR VOLUME 85.7 fL (80.0-94.0); MEAN PLATELET VOLUME 8.6 fl (7.4-10.4); MONOCYTES % 11.3 % (2.0-8.0); NEUTROPHILS % 65.8 % (40.0-76.0); PLATELET 412 x1000/uL (130-400); RED BLOOD CELL COUNT 3.05 mill/uL (4.7-6.1)
[2021-12-04 10:51] LABS: CHLORIDE 108 mEq/L (98-107)
[2021-12-04 12:00] VITALS: BP 128/88
[2021-12-04] MEDS: VANCOMYCIN 750MG PREMIX 150 ML IV SCH (12:07)
[2021-12-04 16:00] VITALS: BP 122/71
[2021-12-04] MEDS: DOCUSATE SODIUM 100MG CAPSULE PO PRN (17:22)
[2021-12-04 20:00] VITALS: BP 118/74
[2021-12-04] MEDS: INSULIN GLARGINE UD 100 UNITS/ML SYR SUBCUT SCH (21:27)
[2021-12-05] VITALS: BP 111/72
[2021-12-05 04:00] VITALS: BP 113/71
[2021-12-05] MEDS: VANCOMYCIN 750MG PREMIX 150 ML IV SCH (04:26)
[2021-12-05] MEDS: SODIUM CHL 0.45% + KCL 20MEQ/L 1,000 ML IV SCH (04:26)
[2021-12-05] MEDS: BLOOD SUGAR DIAGNOSTIC STRIP TEST SCH ×4 (05:57→21:55)
[2021-12-05] MEDS: INSULIN LISPRO 100 UNITS/ML SUBCUT SCH ×4 (06:37→22:04)
[2021-12-05 08:00] VITALS: BP 119/75
[2021-12-05] MEDS: DOCUSATE SODIUM 100MG CAPSULE PO PRN ×2 (09:12→09:13)
[2021-12-05] MEDS: ENOXAPARIN 40MG/0.4ML SYR SUBCUT SCH (09:12)
[2021-12-05] MEDS: PANTOPRAZOLE SODIUM 40 MG/VIAL IV SCH (09:12)
[2021-12-05] MEDS: PSYLLIUM SEED PACKET PO SCH ×3 (09:12→16:48)
[2021-12-05] MEDS: DOCUSATE SODIUM SUGAR FREE 100MG/10ML UDC NG SCH ×2 (09:18→16:47)
[2021-12-05 20:00] VITALS: BP 102/53
[2021-12-06] VITALS: BP 102/66
[2021-12-06] MEDS: INSULIN GLARGINE UD 100 UNITS/ML SYR SUBCUT SCH ×3 (00:34→21:59)
[2021-12-06] MEDS: VANCOMYCIN 750MG PREMIX 150 ML IV SCH ×2 (00:35→16:51)
[2021-12-06 04:00] VITALS: BP 112/70
[2021-12-06] MEDS: SODIUM CHL 0.45% + KCL 20MEQ/L 1,000 ML IV SCH ×2 (04:34→23:06)
[2021-12-06] MEDS: INSULIN LISPRO 100 UNITS/ML SUBCUT SCH ×4 (07:50→22:00)
[2021-12-06 08:00] VITALS: BP 120/76
[2021-12-06] MEDS: BLOOD SUGAR DIAGNOSTIC STRIP TEST SCH ×3 (08:10→21:56)
[2021-12-06] MEDS: PSYLLIUM SEED PACKET PO SCH ×3 (08:27→16:50)
[2021-12-06] MEDS: PANTOPRAZOLE SODIUM 40 MG/VIAL IV SCH (08:27)
[2021-12-06] MEDS: ENOXAPARIN 40MG/0.4ML SYR SUBCUT SCH (08:28)
[2021-12-06 10:16] LABS: CHLORIDE 104 mEq/L (98-107)
[2021-12-06] MEDS: DOCUSATE SODIUM 100MG CAPSULE PO PRN ×2 (13:41→18:01)
[2021-12-06] MEDS: DOCUSATE SODIUM SUGAR FREE 100MG/10ML UDC NG SCH ×2 (13:49→17:00)
[2021-12-06 16:00] VITALS: BP 119/76
[2021-12-06 20:00] VITALS: BP 130/83
[2021-12-07] VITALS: BP 122/80
[2021-12-07 04:00] VITALS: BP 135/85
[2021-12-07] MEDS: INSULIN LISPRO 100 UNITS/ML SUBCUT SCH ×4 (06:20→21:46)
[2021-12-07] MEDS: BLOOD SUGAR DIAGNOSTIC STRIP TEST SCH ×4 (06:20→21:39)
[2021-12-07 08:00] VITALS: BP 128/75
[2021-12-07] MEDS: PANTOPRAZOLE SODIUM 40 MG/VIAL IV SCH (08:03)
[2021-12-07] MEDS: PSYLLIUM SEED PACKET PO SCH ×3 (08:03→18:01)
[2021-12-07] MEDS: ENOXAPARIN 40MG/0.4ML SYR SUBCUT SCH (08:04)
[2021-12-07] MEDS: INSULIN GLARGINE UD 100 UNITS/ML SYR SUBCUT SCH ×2 (10:22→21:45)
[2021-12-07] MEDS: VANCOMYCIN 750MG PREMIX 150 ML IV SCH (10:27)
[2021-12-07] MEDS: SODIUM CHL 0.45% + KCL 20MEQ/L 1,000 ML IV SCH (10:28)
[2021-12-07 11:00] LABS: BASOPHILS % 0.4 % (0.0-2.0); EOSINOPHILS % 2.7 % (0.0-5.0); HEMATOCRIT. 26.6 % (42.0-52.0); HEMOGLOBIN. 8.9 g/dL (14.0-18.0); LYMPHOCYTES % 15.5 % (20.0-50.0); MEAN CORPUSCULAR HEMOGLOBIN 28.9 pg (28.0-32.0); MEAN CORPUSCULAR VOLUME 86.7 fL (80.0-94.0); MEAN PLATELET VOLUME 9.5 fl (7.4-10.4); MONOCYTES % 11.3 % (2.0-8.0); NEUTROPHILS % 70.1 % (40.0-76.0); PLATELET 418 x1000/uL (130-400); RED BLOOD CELL COUNT 3.06 mill/uL (4.7-6.1); RED CELL DISTRIBUTION WIDTH 13.9 % (11.6-14.6)
[2021-12-07 11:47] LABS: CHLORIDE 106 mEq/L (98-107)
[2021-12-07 12:00] VITALS: BP 124/76
[2021-12-07 15:50] VITALS: BP 122/79
[2021-12-07] MEDS: DOCUSATE SODIUM SUGAR FREE 100MG/10ML UDC NG SCH (17:00)
[2021-12-08] VITALS: BP 114/77
[2021-12-08] MEDS: SODIUM CHL 0.45% + KCL 20MEQ/L 1,000 ML IV SCH ×2 (05:29→12:48)
[2021-12-08] MEDS: VANCOMYCIN 750MG PREMIX 150 ML IV SCH ×2 (05:29→22:09)
[2021-12-08 08:00] VITALS: BP 113/77
[2021-12-08] MEDS: BLOOD SUGAR DIAGNOSTIC STRIP TEST SCH ×4 (08:11→21:00)
[2021-12-08] MEDS: DOCUSATE SODIUM SUGAR FREE 100MG/10ML UDC NG SCH ×2 (09:00→18:10)
[2021-12-08] MEDS: DOCUSATE SODIUM 100MG CAPSULE PO PRN (09:30)
[2021-12-08] MEDS: ENOXAPARIN 40MG/0.4ML SYR SUBCUT SCH (09:31)
[2021-12-08] MEDS: PANTOPRAZOLE SODIUM 40 MG/VIAL IV SCH (09:31)
[2021-12-08] MEDS: PSYLLIUM SEED PACKET PO SCH ×3 (09:32→17:00)
[2021-12-08] MEDS: INSULIN GLARGINE UD 100 UNITS/ML SYR SUBCUT SCH ×2 (10:00→22:36)
[2021-12-08] MEDS: INSULIN LISPRO 100 UNITS/ML SUBCUT SCH ×4 (10:02→22:11)
[2021-12-08 12:00] VITALS: BP 113/72
[2021-12-08 20:00] VITALS: BP 101/54
[2021-12-09] VITALS: BP 106/69
[2021-12-09 04:00] VITALS: BP 122/84
[2021-12-09] MEDS: BLOOD SUGAR DIAGNOSTIC STRIP TEST SCH ×4 (06:52→21:23)
[2021-12-09] MEDS: SODIUM CHL 0.45% + KCL 20MEQ/L 1,000 ML IV SCH (06:52)
[2021-12-09] MEDS: INSULIN LISPRO 100 UNITS/ML SUBCUT SCH ×4 (07:50→21:36)
[2021-12-09 08:00] VITALS: BP 117/69
[2021-12-09] MEDS: DOCUSATE SODIUM SUGAR FREE 100MG/10ML UDC NG SCH ×2 (09:00→17:00)
[2021-12-09] MEDS: DOCUSATE SODIUM 100MG CAPSULE PO PRN ×3 (09:44→17:22)
[2021-12-09] MEDS: PANTOPRAZOLE SODIUM 40 MG/VIAL IV SCH (09:44)
[2021-12-09] MEDS: PSYLLIUM SEED PACKET PO SCH ×3 (09:45→17:23)
[2021-12-09] MEDS: ENOXAPARIN 40MG/0.4ML SYR SUBCUT SCH (10:25)
[2021-12-09] MEDS: INSULIN GLARGINE UD 100 UNITS/ML SYR SUBCUT SCH ×2 (10:34→21:36)
[2021-12-09] MEDS ORDERED: LANTUSUD SUBCUT (11:02)
[2021-12-09 12:00] VITALS: BP 120/83
[2021-12-09 16:00] VITALS: BP 114/78
[2021-12-09] MEDS: VANCOMYCIN 750MG PREMIX 150 ML IV SCH (17:22)
[2021-12-09 20:00] VITALS: BP 112/72
[2021-12-10] VITALS: BP 109/66
[2021-12-10] MEDS: PSYLLIUM SEED PACKET PO SCH (08:35)
[2021-12-10] MEDS: ENOXAPARIN 40MG/0.4ML SYR SUBCUT SCH (08:36)
[2021-12-10] MEDS: DOCUSATE SODIUM SUGAR FREE 100MG/10ML UDC NG SCH (08:36)
[2021-12-10] MEDS: INSULIN LISPRO 100 UNITS/ML SUBCUT SCH (09:20)
[2021-12-10 12:17] VITALS: BP 121/81
== END 2021-12-10 13:43 | disposition home health service (06) | DRG 720 ==
LOC: ER 15:08 → MICUSO 18:54 → CVICU 11-24 08:56 → 5WST 11-27 17:00 → 6EST 12-05 16:47 → 5WST 12-05 16:57 → 6EST 12-05 18:23
PROVIDERS: ADMIT Internal Medicine; ATTEND Internal Medicine
PROC: 5A1955Z Respiratory Ventilation, Greater than 96 Consecutive Hours (ICD-10-PCS; principal; 2021-11-22)
PROC: 0BH17EZ Insertion of Endotracheal Airway into Trachea, Via Natural or Artificial Opening (ICD-10-PCS; 2021-11-22)
PROC: 02HV33Z Insertion of Infusion Device into Superior Vena Cava, Percutaneous Approach (ICD-10-PCS; 2021-11-22)
PROC: B548ZZA Ultrasonography of Superior Vena Cava, Guidance (ICD-10-PCS; 2021-11-22)
DX: A41.02 Sepsis due to Methicillin resistant Staphylococcus aureus (principal); J96.00 Acute respiratory failure, unspecified whether with hypoxia or hypercapnia; R65.21 Severe sepsis with septic shock; G93.41 Metabolic encephalopathy; E11.10 Type 2 diabetes mellitus with ketoacidosis without coma; J15.6 Pneumonia due to other Gram-negative bacteria; L89.150 Pressure ulcer of sacral region, unstageable; K85.90 Acute pancreatitis without necrosis or infection, unspecified; E86.9 Volume depletion, unspecified; N17.9 Acute kidney failure, unspecified; E87.0 Hyperosmolality and hypernatremia; E83.39 Other disorders of phosphorus metabolism; E83.52 Hypercalcemia; E87.5 Hyperkalemia; D64.9 Anemia, unspecified; E83.42 Hypomagnesemia; R74.01 Elevation of levels of liver transaminase levels; Z20.822 Contact with and (suspected) exposure to COVID-19; E87.6 Hypokalemia; F20.9 Schizophrenia, unspecified; F31.9 Bipolar disorder, unspecified; I10 Essential (primary) hypertension; Z79.4 Long term (current) use of insulin; Z91.14 Patient's other noncompliance with medication regimen; R00.0 Tachycardia, unspecified; R74.8 Abnormal levels of other serum enzymes; B95.4 Other streptococcus as the cause of diseases classified elsewhere; R19.7 Diarrhea, unspecified
CPT/HCPCS: 31500; 36415; 36600; 71045; 71250; 74176; 76700; 80048; 80053; 80076; 80202; 80305; 80307; 80320; 80329; 81003; 82010; 82040; 82150; 82375; 82550; 82805; 82962; 83036; 83605; 83735; 83880; 84100; 84132; 84134; 84145; 84484; 85025; 87070; 87077; 87186; 87389; 87426; 92610; 93005; 93306; 94002; 94003; 97162; 99285; A6261; C9113; J0610; J0696; J1650; J1720; J1815; J2250; J2543; J2765; J3370; J3475; J3480; J3490; J7030; J7040; J7050; J7060; J7070; A4315; G0480

== ENCOUNTER 2021-12-18 18:18 | Inpatient (IN) | payer OTHER ==
[~2021-12-18] VITALS: Ht 185.4 cm; Wt 64.9 kg
[2021-12-18] MEDS ORDERED: SODIUM CHLORIDE 0.9% 1,000 ML IV ONE ×2 (19:00)
[2021-12-18 19:04] LABS: HEMATOCRIT. 26.7 % (42.0-52.0); HEMOGLOBIN. 8.7 g/dL (14.0-18.0); MEAN CORPUSCULAR HEMOGLOBIN 27.8 pg (28.0-32.0); MEAN CORPUSCULAR VOLUME 85.2 fL (80.0-94.0); MEAN PLATELET VOLUME 9.5 fl (7.4-10.4); PLATELET 386 x1000/uL (130-400); RED BLOOD CELL COUNT 3.14 mill/uL (4.7-6.1); RED CELL DISTRIBUTION WIDTH 14.2 % (11.6-14.6)
[2021-12-18 19:11] LABS: CHLORIDE 95 mEq/L (98-107)
[2021-12-18 19:15] LABS: ETHANOL BLOOD < 10 mg/dL
[2021-12-18 19:20] LABS: BETA HYDROXYBUTYRATE 1.1 mMol/L (0.0-0.3)
[2021-12-18 19:32] LABS: PLATELET ESTIMATE NORMAL
[2021-12-18] MEDS ORDERED: VANCOMYCIN 1G PREMIX 200 ML IV SCH (20:45)
[2021-12-18] MEDS ORDERED: CEFEPIME 2,000 MG in DEXT 5% WATER 100 ML IV SCH (20:45)
[2021-12-18 23:07] LABS: CLARITY URINE CLEAR (CLEAR); COLOR URINE YELLOW (YELLOW); KETONES URINE TRACE (NEGATIVE); LEUKOCYTE ESTERASE URINE NEGATIVE (NEGATIVE); NITRITE URINE NEGATIVE (NEGATIVE); OCCULT BLOOD URINE TRACE (NEGATIVE); PROTEIN URINE TRACE (NEGATIVE); UROBILINOGEN URINE 0.2 E.U./dL (0.2-1.0)
[2021-12-18 23:29] LABS: *AMPHETAMINES SCREEN URINE NEGATIVE (NEGATIVE); CANNABINOID URINE SCREEN NEGATIVE (NEGATIVE); OPIATES URINE SCREEN NEGATIVE (NEGATIVE); PHENCYCLIDINE URINE SCREEN NEGATIVE (NEGATIVE)
[2021-12-18 23:30] LABS: *BARBITURATES SCREEN URINE NEGATIVE (NEGATIVE); *BENZODIAZEPINES SCREEN URINE NEGATIVE (NEGATIVE); *COCAINE SCREEN URINE NEGATIVE (NEGATIVE); METHADONE URINE SCREEN NEGATIVE (NEGATIVE)
[2021-12-18] MEDS ORDERED: INSULIN LISPRO 100 UNITS/ML SUBCUT SCH (23:30)
[2021-12-18] MEDS ORDERED: SODIUM CHLORIDE 0.9% 1000ML BAG (SEPSIS BOLUS) IV ONE (23:45)
[2021-12-19] VITALS (8 sets, daily range): BP systolic 104–130; BP diastolic 40–80
[2021-12-19] MEDS ORDERED: DEXTROSE 50% WATER 50ML SYRINGE IV PRN ×3 (03:30)
[2021-12-19] MEDS ORDERED: VANCOMYCIN 1G PREMIX 200 ML IV SCH (04:00)
[2021-12-19] MEDS: ACETAMINOPHEN 325MG TABLET PO PRN (05:43)
[2021-12-19] MEDS: BLOOD SUGAR DIAGNOSTIC STRIP TEST SCH ×4 (06:47→20:18)
[2021-12-19] MEDS: INSULIN LISPRO 100 UNITS/ML SUBCUT SCH ×4 (07:00→21:18)
[2021-12-19] MEDS: PIPERACILLIN/TAZOBACTAM 3.375 G in DEXTROSE 5% WATER 50 ML IV SCH ×3 (07:02→21:46)
[2021-12-19 08:37] LABS: HEMATOCRIT 23.4 % (42.0-52.0); HEMOGLOBIN 7.6 g/dL (14.0-18.0); MEAN CORPUSCULAR HEMOGLOBIN 27.4 pg (28.0-32.0); MEAN CORPUSCULAR VOLUME 84.6 fL (80.0-94.0); PLATELET 325 x1000/uL (130-400); RED BLOOD CELL COUNT 2.76 mill/uL (4.7-6.1)
[2021-12-19] MEDS: ENOXAPARIN 40MG/0.4ML SYR SUBCUT SCH (09:29)
[2021-12-19] MEDS ORDERED: INSULIN GLARGINE 100 UNITS/ML SUBCUT SCH (10:00)
[2021-12-19] MEDS: INSULIN GLARGINE 100 UNITS/ML SUBCUT SCH ×2 (11:25→21:18)
[2021-12-19] MEDS: VANCOMYCIN 750MG PREMIX 150 ML IV SCH (13:44)
[2021-12-20] VITALS (8 sets, daily range): BP systolic 100–119; BP diastolic 55–69
[2021-12-20] MEDS: ACETAMINOPHEN 325MG TABLET PO PRN ×4 (00:03→22:38)
[2021-12-20] MEDS: PIPERACILLIN/TAZOBACTAM 3.375 G in DEXTROSE 5% WATER 50 ML IV SCH ×3 (05:09→21:11)
[2021-12-20] MEDS: BLOOD SUGAR DIAGNOSTIC STRIP TEST SCH ×4 (05:32→21:12)
[2021-12-20] MEDS: INSULIN LISPRO 100 UNITS/ML SUBCUT SCH ×4 (05:41→21:11)
[2021-12-20] MEDS: ENOXAPARIN 40MG/0.4ML SYR SUBCUT SCH (08:35)
[2021-12-20] MEDS: VANCOMYCIN 750MG PREMIX 150 ML IV SCH (08:35)
[2021-12-20 11:33] LABS: HEMATOCRIT. 23.2 % (42.0-52.0); HEMOGLOBIN. 7.7 g/dL (14.0-18.0); MEAN CORPUSCULAR HEMOGLOBIN 27.7 pg (28.0-32.0); MEAN CORPUSCULAR VOLUME 83.5 fL (80.0-94.0); MEAN PLATELET VOLUME 9.1 fl (7.4-10.4); PLATELET 311 x1000/uL (130-400); RED BLOOD CELL COUNT 2.77 mill/uL (4.7-6.1); RED CELL DISTRIBUTION WIDTH 14.6 % (11.6-14.6)
[2021-12-20 11:55] LABS: CHLORIDE 101 mEq/L (98-107)
[2021-12-20] MEDS ORDERED: INSULIN LISPRO 100 UNITS/ML SUBCUT NR (13:41)
[2021-12-20 16:59] LABS: PLATELET ESTIMATE NORMAL
[2021-12-20] MEDS: INSULIN GLARGINE 100 UNITS/ML SUBCUT SCH (21:11)
[2021-12-21] VITALS: BP 97/58
[2021-12-21] MEDS: VANCOMYCIN 750MG PREMIX 150 ML IV SCH (03:13)
[2021-12-21 04:00] VITALS: BP 111/74
[2021-12-21] MEDS: PIPERACILLIN/TAZOBACTAM 3.375 G in DEXTROSE 5% WATER 50 ML IV SCH ×2 (05:48→13:18)
[2021-12-21] MEDS: BLOOD SUGAR DIAGNOSTIC STRIP TEST SCH ×4 (06:12→21:06)
[2021-12-21] MEDS: INSULIN LISPRO 100 UNITS/ML SUBCUT SCH ×4 (06:29→21:06)
[2021-12-21 08:00] VITALS: BP 110/64
[2021-12-21] MEDS: ENOXAPARIN 40MG/0.4ML SYR SUBCUT SCH (08:30)
[2021-12-21] MEDS: ACETAMINOPHEN 325MG TABLET PO PRN (08:30)
[2021-12-21 09:20] LABS: CHLORIDE 103 mEq/L (98-107)
[2021-12-21] MEDS: INSULIN GLARGINE 100 UNITS/ML SUBCUT SCH ×2 (09:20→21:06)
[2021-12-21 12:00] VITALS: BP 132/96
[2021-12-21 16:00] VITALS: BP 109/64
[2021-12-21] MEDS: VANCOMYCIN 1G PREMIX 200 ML IV SCH (16:00)
[2021-12-21] MEDS: MEROPENEM 1,000 MG in SODIUM CHLORIDE 0.9% 100 ML IV SCH (18:16)
[2021-12-21 20:00] VITALS: BP 101/63
[2021-12-22] VITALS: BP 102/70
[2021-12-22] MEDS: MEROPENEM 1,000 MG in SODIUM CHLORIDE 0.9% 100 ML IV SCH ×3 (00:39→18:13)
[2021-12-22 04:00] VITALS: BP 122/66
[2021-12-22] MEDS: INSULIN LISPRO 100 UNITS/ML SUBCUT SCH ×4 (06:18→21:47)
[2021-12-22] MEDS: BLOOD SUGAR DIAGNOSTIC STRIP TEST SCH ×4 (06:18→21:49)
[2021-12-22 07:22] LABS: HEMATOCRIT. 24.5 % (42.0-52.0); HEMOGLOBIN. 8.3 g/dL (14.0-18.0); MEAN CORPUSCULAR HEMOGLOBIN 27.8 pg (28.0-32.0); MEAN CORPUSCULAR VOLUME 82.1 fL (80.0-94.0); MEAN PLATELET VOLUME 9.6 fl (7.4-10.4); PLATELET 357 x1000/uL (130-400); RED BLOOD CELL COUNT 2.99 mill/uL (4.7-6.1); RED CELL DISTRIBUTION WIDTH 14.4 % (11.6-14.6)
[2021-12-22 07:34] LABS: CHLORIDE 102 mEq/L (98-107)
[2021-12-22 08:00] VITALS: BP 99/58
[2021-12-22] MEDS: VANCOMYCIN 1G PREMIX 200 ML IV SCH (09:40)
[2021-12-22] MEDS: ENOXAPARIN 40MG/0.4ML SYR SUBCUT SCH (10:22)
[2021-12-22] MEDS: INSULIN GLARGINE 100 UNITS/ML SUBCUT SCH ×2 (10:24→21:48)
[2021-12-22 12:00] VITALS: BP 117/77
[2021-12-22 16:00] VITALS: BP 103/69
[2021-12-22 16:17] LABS: PLATELET ESTIMATE NORMAL
[2021-12-22] MEDS: MICAFUNGIN 150 MG in SODIUM CHLORIDE 0.9% 100 ML IV SCH (18:12)
[2021-12-22 20:00] VITALS: BP 109/72
[2021-12-22] MEDS: ACETAMINOPHEN 325MG TABLET PO PRN (20:52)
[2021-12-23] VITALS: BP 105/64
[2021-12-23] MEDS: MEROPENEM 1,000 MG in SODIUM CHLORIDE 0.9% 100 ML IV SCH ×4 (03:30→23:45)
[2021-12-23 04:00] VITALS: BP 111/70
[2021-12-23] MEDS: VANCOMYCIN 1G PREMIX 200 ML IV SCH (04:05)
[2021-12-23] MEDS: ACETAMINOPHEN 325MG TABLET PO PRN (04:31)
[2021-12-23] MEDS: BLOOD SUGAR DIAGNOSTIC STRIP TEST SCH ×4 (06:14→21:52)
[2021-12-23] MEDS: INSULIN LISPRO 100 UNITS/ML SUBCUT SCH ×4 (06:15→21:55)
[2021-12-23 08:00] VITALS: BP 109/75
[2021-12-23 08:43] LABS: CHLORIDE 101 mEq/L (98-107)
[2021-12-23] MEDS: ENOXAPARIN 40MG/0.4ML SYR SUBCUT SCH (09:23)
[2021-12-23] MEDS: INSULIN GLARGINE 100 UNITS/ML SUBCUT SCH ×2 (10:48→21:55)
[2021-12-23 12:00] VITALS: BP 110/65
[2021-12-23] MEDS: MICAFUNGIN 150 MG in SODIUM CHLORIDE 0.9% 100 ML IV SCH (14:21)
[2021-12-23 16:00] VITALS: BP 114/67
[2021-12-23] MEDS: DOCUSATE SODIUM 100MG CAPSULE PO SCH (17:49)
[2021-12-23] MEDS: VANCOMYCIN 750MG PREMIX 150 ML IV SCH (17:59)
[2021-12-23 20:00] VITALS: BP 102/62
[2021-12-24] VITALS: BP 142/80
[2021-12-24 04:00] VITALS: BP 102/67
[2021-12-24] MEDS: BLOOD SUGAR DIAGNOSTIC STRIP TEST SCH ×4 (06:57→20:15)
[2021-12-24] MEDS: VANCOMYCIN 750MG PREMIX 150 ML IV SCH ×2 (07:02→18:40)
[2021-12-24] MEDS: INSULIN LISPRO 100 UNITS/ML SUBCUT SCH ×4 (07:02→21:48)
[2021-12-24 07:43] LABS: HEMATOCRIT. 24.3 % (42.0-52.0); HEMOGLOBIN. 8.2 g/dL (14.0-18.0); MEAN CORPUSCULAR HEMOGLOBIN 27.7 pg (28.0-32.0); PLATELET 411 x1000/uL (130-400); RED BLOOD CELL COUNT 2.96 mill/uL (4.7-6.1); RED CELL DISTRIBUTION WIDTH 14.6 % (11.6-14.6)
[2021-12-24 08:00] VITALS: BP 106/68
[2021-12-24 08:08] LABS: CHLORIDE 100 mEq/L (98-107)
[2021-12-24] MEDS: MEROPENEM 1,000 MG in SODIUM CHLORIDE 0.9% 100 ML IV SCH ×2 (09:36→18:31)
[2021-12-24] MEDS: DOCUSATE SODIUM 100MG CAPSULE PO SCH ×2 (09:36→17:00)
[2021-12-24] MEDS: ENOXAPARIN 40MG/0.4ML SYR SUBCUT SCH (09:38)
[2021-12-24] MEDS: INSULIN GLARGINE 100 UNITS/ML SUBCUT SCH ×2 (10:00→21:48)
[2021-12-24 12:00] VITALS: BP 117/71
[2021-12-24] MEDS: MICAFUNGIN 150 MG in SODIUM CHLORIDE 0.9% 100 ML IV SCH (13:56)
[2021-12-24 16:00] VITALS: BP 123/73
[2021-12-24] MEDS ORDERED: LIDOCAINE HCL 2%/EPINEPHRINE/PF 10 ML VIAL INFIL NR (16:00)
[2021-12-24 17:51] LABS: PLATELET ESTIMATE INCREASED
[2021-12-24 20:00] VITALS: BP 105/69
[2021-12-24] MEDS: ACETAMINOPHEN 325MG TABLET PO PRN (20:16)
[2021-12-25] VITALS: BP 114/77
[2021-12-25] MEDS: MEROPENEM 1,000 MG in SODIUM CHLORIDE 0.9% 100 ML IV SCH ×3 (00:05→16:16)
[2021-12-25 04:00] VITALS: BP 99/58
[2021-12-25] MEDS: ACETAMINOPHEN 325MG TABLET PO PRN ×2 (05:04→14:58)
[2021-12-25] MEDS: BLOOD SUGAR DIAGNOSTIC STRIP TEST SCH ×4 (05:04→21:00)
[2021-12-25] MEDS: VANCOMYCIN 750MG PREMIX 150 ML IV SCH (05:05)
[2021-12-25] MEDS: INSULIN LISPRO 100 UNITS/ML SUBCUT SCH ×4 (06:27→22:16)
[2021-12-25 08:00] VITALS: BP 137/78
[2021-12-25] MEDS: ENOXAPARIN 40MG/0.4ML SYR SUBCUT SCH (09:02)
[2021-12-25] MEDS: DOCUSATE SODIUM 100MG CAPSULE PO SCH ×2 (09:02→16:16)
[2021-12-25] MEDS: INSULIN GLARGINE 100 UNITS/ML SUBCUT SCH ×2 (09:12→22:15)
[2021-12-25 12:00] VITALS: BP 122/69
[2021-12-25] MEDS: MICAFUNGIN 150 MG in SODIUM CHLORIDE 0.9% 100 ML IV SCH (14:06)
[2021-12-25] MEDS ORDERED: HYDROCODONE/ACETAMINOPHEN 10/325MG TABLET PO PRN (15:00)
[2021-12-25] MEDS ORDERED: MORPHINE SULFATE 2 MG/ML CPJ (NOT FOR IM USE) IV NR (15:00)
[2021-12-25] MEDS ORDERED: NALOXONE HCL 0.4MG/ML VIAL IV PRN (15:15)
[2021-12-25 16:00] VITALS: BP 122/70
[2021-12-25] MEDS: AMPICILLIN 2,000 MG in SODIUM CHLORIDE 0.9% 100 ML IV SCH ×2 (16:16→21:39)
[2021-12-25] MEDS: VANCOMYCIN 750 MG in SODIUM CHLORIDE 0.9% 250 ML IV SCH (17:21)
[2021-12-25] MEDS: SODIUM HYPOCHLORITE 0.125% 473ML SOLUTION TOP SCH (17:22)
[2021-12-25 20:00] VITALS: BP 102/60
[2021-12-25] MEDS: MIRTAZAPINE 15MG TABLET PO SCH (21:39)
[2021-12-26] VITALS: BP 103/77
[2021-12-26] MEDS: MEROPENEM 1,000 MG in SODIUM CHLORIDE 0.9% 100 ML IV SCH ×3 (00:16→16:22)
[2021-12-26 01:38] LABS: CHLORIDE 102 mEq/L (98-107)
[2021-12-26 01:48] LABS: HEMATOCRIT. 24.1 % (42.0-52.0); HEMOGLOBIN. 8.3 g/dL (14.0-18.0); MEAN CORPUSCULAR HEMOGLOBIN 28.3 pg (28.0-32.0); MEAN CORPUSCULAR VOLUME 82.4 fL (80.0-94.0); MEAN PLATELET VOLUME 8.7 fl (7.4-10.4); PLATELET 467 x1000/uL (130-400); RED BLOOD CELL COUNT 2.93 mill/uL (4.7-6.1); RED CELL DISTRIBUTION WIDTH 14.8 % (11.6-14.6)
[2021-12-26 02:28] LABS: PLATELET ESTIMATE INCREASED
[2021-12-26] MEDS: AMPICILLIN 2,000 MG in SODIUM CHLORIDE 0.9% 100 ML IV SCH ×4 (03:25→21:08)
[2021-12-26 04:00] VITALS: BP 103/79
[2021-12-26] MEDS: VANCOMYCIN 750 MG in SODIUM CHLORIDE 0.9% 250 ML IV SCH (05:39)
[2021-12-26] MEDS: BLOOD SUGAR DIAGNOSTIC STRIP TEST SCH ×4 (05:52→21:08)
[2021-12-26] MEDS: INSULIN LISPRO 100 UNITS/ML SUBCUT SCH ×4 (06:55→21:00)
[2021-12-26 07:41] LABS: CHLORIDE 104 mEq/L (98-107)
[2021-12-26 07:48] LABS: VANCOMYCIN TROUGH 26.3 ug/mL (5.0-10.0)
[2021-12-26 08:00] VITALS: BP 116/80
[2021-12-26] MEDS: ENOXAPARIN 40MG/0.4ML SYR SUBCUT SCH (08:27)
[2021-12-26] MEDS: DOCUSATE SODIUM 100MG CAPSULE PO SCH ×2 (08:27→16:13)
[2021-12-26] MEDS: SODIUM HYPOCHLORITE 0.125% 473ML SOLUTION TOP SCH ×2 (08:28→16:22)
[2021-12-26] MEDS ORDERED: LIDOCAINE HCL/PF 1% 10 MG/ML 5ML VIAL ONE (08:46)
[2021-12-26] MEDS: INSULIN GLARGINE 100 UNITS/ML SUBCUT SCH ×2 (10:42→22:10)
[2021-12-26 12:00] VITALS: BP 119/85
[2021-12-26] MEDS: MICAFUNGIN 150 MG in SODIUM CHLORIDE 0.9% 100 ML IV SCH (13:46)
[2021-12-26 16:00] VITALS: BP 133/91
[2021-12-26 20:00] VITALS: BP 111/78
[2021-12-26] MEDS: MIRTAZAPINE 15MG TABLET PO SCH (21:08)
[2021-12-26] MEDS: VANCOMYCIN 1G PREMIX 200 ML IV SCH (22:10)
[2021-12-27] VITALS: BP 113/75
[2021-12-27] MEDS: MEROPENEM 1,000 MG in SODIUM CHLORIDE 0.9% 100 ML IV SCH ×3 (00:22→16:36)
[2021-12-27] MEDS: AMPICILLIN 2,000 MG in SODIUM CHLORIDE 0.9% 100 ML IV SCH ×4 (01:56→21:08)
[2021-12-27 04:00] VITALS: BP 131/95
[2021-12-27] MEDS: INSULIN LISPRO 100 UNITS/ML SUBCUT SCH ×4 (06:31→21:00)
[2021-12-27] MEDS: BLOOD SUGAR DIAGNOSTIC STRIP TEST SCH ×4 (06:31→21:07)
[2021-12-27 08:00] VITALS: BP 114/79
[2021-12-27] MEDS: DOCUSATE SODIUM 100MG CAPSULE PO SCH ×2 (09:00→16:29)
[2021-12-27] MEDS: SODIUM HYPOCHLORITE 0.125% 473ML SOLUTION TOP SCH ×2 (09:19→16:36)
[2021-12-27] MEDS: ENOXAPARIN 40MG/0.4ML SYR SUBCUT SCH (09:20)
[2021-12-27] MEDS: INSULIN GLARGINE 100 UNITS/ML SUBCUT SCH ×2 (10:00→21:09)
[2021-12-27 12:00] VITALS: BP 117/75
[2021-12-27] MEDS: MICAFUNGIN 150 MG in SODIUM CHLORIDE 0.9% 100 ML IV SCH (14:08)
[2021-12-27] MEDS: VANCOMYCIN 1G PREMIX 200 ML IV SCH (14:08)
[2021-12-27 16:00] VITALS: BP 121/71
[2021-12-27 20:00] VITALS: BP 124/83
[2021-12-27] MEDS: MIRTAZAPINE 15MG TABLET PO SCH (21:08)
[2021-12-28] VITALS: BP 124/91
[2021-12-28] MEDS: MEROPENEM 1,000 MG in SODIUM CHLORIDE 0.9% 100 ML IV SCH ×4 (00:31→23:37)
[2021-12-28] MEDS: AMPICILLIN 2,000 MG in SODIUM CHLORIDE 0.9% 100 ML IV SCH ×4 (02:44→22:05)
[2021-12-28 04:00] VITALS: BP 124/87
[2021-12-28] MEDS: BLOOD SUGAR DIAGNOSTIC STRIP TEST SCH ×4 (06:03→21:00)
[2021-12-28] MEDS: INSULIN LISPRO 100 UNITS/ML SUBCUT SCH ×4 (06:04→21:00)
[2021-12-28 08:00] VITALS: BP 127/88
[2021-12-28 10:21] LABS: CHLORIDE 107 mEq/L (98-107)
[2021-12-28] MEDS: DOCUSATE SODIUM 100MG CAPSULE PO SCH ×2 (10:47→17:00)
[2021-12-28] MEDS: ENOXAPARIN 40MG/0.4ML SYR SUBCUT SCH (10:47)
[2021-12-28] MEDS: INSULIN GLARGINE 100 UNITS/ML SUBCUT SCH ×2 (10:48→22:06)
[2021-12-28] MEDS: SODIUM HYPOCHLORITE 0.125% 473ML SOLUTION TOP SCH ×2 (10:49→17:34)
[2021-12-28 12:00] VITALS: BP 127/94
[2021-12-28] MEDS: VANCOMYCIN 1G PREMIX 200 ML IV SCH (12:03)
[2021-12-28] MEDS: MICAFUNGIN 150 MG in SODIUM CHLORIDE 0.9% 100 ML IV SCH (14:25)
[2021-12-28 16:00] VITALS: BP 138/97
[2021-12-28 20:00] VITALS: BP 124/88
[2021-12-28] MEDS: MIRTAZAPINE 15MG TABLET PO SCH (22:05)
[2021-12-29] VITALS: BP 130/79
[2021-12-29] MEDS: AMPICILLIN 2,000 MG in SODIUM CHLORIDE 0.9% 100 ML IV SCH ×4 (02:07→20:23)
[2021-12-29] MEDS: VANCOMYCIN 1G PREMIX 200 ML IV SCH ×2 (02:45→21:32)
[2021-12-29 04:00] VITALS: BP 122/81
[2021-12-29] MEDS: BLOOD SUGAR DIAGNOSTIC STRIP TEST SCH ×4 (06:55→20:33)
[2021-12-29] MEDS: INSULIN LISPRO 100 UNITS/ML SUBCUT SCH ×4 (06:55→20:33)
[2021-12-29 08:00] VITALS: BP 123/88
[2021-12-29] MEDS: MEROPENEM 1,000 MG in SODIUM CHLORIDE 0.9% 100 ML IV SCH ×3 (08:03→23:52)
[2021-12-29] MEDS: ENOXAPARIN 40MG/0.4ML SYR SUBCUT SCH (08:58)
[2021-12-29] MEDS: SODIUM HYPOCHLORITE 0.125% 473ML SOLUTION TOP SCH ×2 (08:59→16:59)
[2021-12-29] MEDS: DOCUSATE SODIUM 100MG CAPSULE PO SCH ×2 (09:00→16:58)
[2021-12-29] MEDS: INSULIN GLARGINE 100 UNITS/ML SUBCUT SCH ×2 (11:03→21:33)
[2021-12-29 12:00] VITALS: BP 130/95
[2021-12-29] MEDS: MICAFUNGIN 150 MG in SODIUM CHLORIDE 0.9% 100 ML IV SCH (14:25)
[2021-12-29 15:57] VITALS: BP 127/93
[2021-12-29 20:00] VITALS: BP 119/53
[2021-12-29] MEDS: MIRTAZAPINE 15MG TABLET PO SCH (20:24)
[2021-12-30] VITALS: BP 99/80
[2021-12-30] MEDS: AMPICILLIN 2,000 MG in SODIUM CHLORIDE 0.9% 100 ML IV SCH ×4 (02:43→21:20)
[2021-12-30 04:00] VITALS: BP 122/87
[2021-12-30 06:24] LABS: CHLORIDE 108 mEq/L (98-107)
[2021-12-30] MEDS: BLOOD SUGAR DIAGNOSTIC STRIP TEST SCH ×4 (06:32→21:23)
[2021-12-30] MEDS: INSULIN LISPRO 100 UNITS/ML SUBCUT SCH ×4 (06:32→21:21)
[2021-12-30 08:00] VITALS: BP 143/105
[2021-12-30 08:20] LABS: BASOPHILS % 1.2 % (0.0-2.0); EOSINOPHILS % 2.8 % (0.0-5.0); HEMATOCRIT. 24.2 % (42.0-52.0); HEMOGLOBIN. 8.3 g/dL (14.0-18.0); MEAN CORPUSCULAR HEMOGLOBIN 28.5 pg (28.0-32.0); MEAN PLATELET VOLUME 8.2 fl (7.4-10.4); MONOCYTES % 9.7 % (2.0-8.0); NEUTROPHILS % 63.3 % (40.0-76.0); PLATELET 501 x1000/uL (130-400); RED BLOOD CELL COUNT 2.91 mill/uL (4.7-6.1); RED CELL DISTRIBUTION WIDTH 14.8 % (11.6-14.6)
[2021-12-30] MEDS: MEROPENEM 1,000 MG in SODIUM CHLORIDE 0.9% 100 ML IV SCH ×2 (08:34→16:56)
[2021-12-30] MEDS: ENOXAPARIN 40MG/0.4ML SYR SUBCUT SCH (08:34)
[2021-12-30] MEDS: DOCUSATE SODIUM 100MG CAPSULE PO SCH ×2 (08:35→16:56)
[2021-12-30] MEDS: SODIUM HYPOCHLORITE 0.125% 473ML SOLUTION TOP SCH ×2 (08:35→16:56)
[2021-12-30] MEDS: INSULIN GLARGINE 100 UNITS/ML SUBCUT SCH ×2 (10:18→21:22)
[2021-12-30 12:00] VITALS: BP 130/96
[2021-12-30] MEDS: MICAFUNGIN 150 MG in SODIUM CHLORIDE 0.9% 100 ML IV SCH (13:34)
[2021-12-30] MEDS: VANCOMYCIN 1G PREMIX 200 ML IV SCH (15:40)
[2021-12-30 16:00] VITALS: BP 132/93
[2021-12-30 20:00] VITALS: BP 135/85
[2021-12-30] MEDS: MIRTAZAPINE 15MG TABLET PO SCH (21:23)
[2021-12-31] VITALS: BP 132/88
[2021-12-31] MEDS: MEROPENEM 1,000 MG in SODIUM CHLORIDE 0.9% 100 ML IV SCH ×3 (00:28→17:01)
[2021-12-31] MEDS: AMPICILLIN 2,000 MG in SODIUM CHLORIDE 0.9% 100 ML IV SCH ×4 (02:37→21:13)
[2021-12-31 04:00] VITALS: BP 127/87
[2021-12-31] MEDS: INSULIN LISPRO 100 UNITS/ML SUBCUT SCH ×4 (06:07→21:26)
[2021-12-31] MEDS: BLOOD SUGAR DIAGNOSTIC STRIP TEST SCH ×4 (06:07→21:15)
[2021-12-31 08:00] VITALS: BP 134/87
[2021-12-31] MEDS: ENOXAPARIN 40MG/0.4ML SYR SUBCUT SCH (09:56)
[2021-12-31] MEDS: DOCUSATE SODIUM 100MG CAPSULE PO SCH ×2 (09:56→17:01)
[2021-12-31] MEDS: INSULIN GLARGINE 100 UNITS/ML SUBCUT SCH ×2 (09:57→21:15)
[2021-12-31] MEDS: SODIUM HYPOCHLORITE 0.125% 473ML SOLUTION TOP SCH ×2 (09:57→17:02)
[2021-12-31] MEDS: VANCOMYCIN 1G PREMIX 200 ML IV SCH (10:26)
[2021-12-31 12:00] VITALS: BP 133/84
[2021-12-31] MEDS ORDERED: LIDOCAINE HCL/EPINEPHRINE 1%-EPI 1:100,000 20 ML VIAL INFIL NR (12:00)
[2021-12-31] MEDS: MICAFUNGIN 150 MG in SODIUM CHLORIDE 0.9% 100 ML IV SCH (13:02)
[2021-12-31 16:00] VITALS: BP 138/95
[2021-12-31 20:00] VITALS: BP 129/92
[2021-12-31] MEDS: MIRTAZAPINE 15MG TABLET PO SCH (21:13)
[2022-01-01] VITALS: BP 120/88
[2022-01-01] MEDS: AMPICILLIN 2,000 MG in SODIUM CHLORIDE 0.9% 100 ML IV SCH ×4 (02:57→20:19)
[2022-01-01] MEDS: VANCOMYCIN 1G PREMIX 200 ML IV SCH ×2 (03:00→21:20)
[2022-01-01 04:00] VITALS: BP 112/75
[2022-01-01] MEDS: INSULIN LISPRO 100 UNITS/ML SUBCUT SCH ×4 (05:56→20:40)
[2022-01-01] MEDS: BLOOD SUGAR DIAGNOSTIC STRIP TEST SCH ×4 (06:18→21:01)
[2022-01-01 08:09] VITALS: BP 126/84
[2022-01-01] MEDS: ENOXAPARIN 40MG/0.4ML SYR SUBCUT SCH (08:58)
[2022-01-01] MEDS: DOCUSATE SODIUM 100MG CAPSULE PO SCH ×2 (08:58→17:11)
[2022-01-01] MEDS: SODIUM HYPOCHLORITE 0.125% 473ML SOLUTION TOP SCH ×2 (09:06→17:11)
[2022-01-01] MEDS: INSULIN GLARGINE 100 UNITS/ML SUBCUT SCH ×2 (10:45→20:41)
[2022-01-01] MEDS: ACETAMINOPHEN 325MG TABLET PO PRN (12:02)
[2022-01-01 13:02] VITALS: BP 120/80
[2022-01-01] MEDS: MICAFUNGIN 150 MG in SODIUM CHLORIDE 0.9% 100 ML IV SCH (14:27)
[2022-01-01 16:00] VITALS: BP 132/64
[2022-01-01 20:00] VITALS: BP 119/83
[2022-01-01] MEDS: MIRTAZAPINE 15MG TABLET PO SCH (20:30)
[2022-01-02] VITALS: BP 120/82
[2022-01-02] MEDS: AMPICILLIN 2,000 MG in SODIUM CHLORIDE 0.9% 100 ML IV SCH ×4 (02:29→22:13)
[2022-01-02 04:00] VITALS: BP 124/86
[2022-01-02] MEDS: INSULIN LISPRO 100 UNITS/ML SUBCUT SCH ×4 (06:31→21:00)
[2022-01-02] MEDS: BLOOD SUGAR DIAGNOSTIC STRIP TEST SCH ×4 (06:31→21:00)
[2022-01-02 08:00] VITALS: BP 115/79
[2022-01-02] MEDS: SODIUM HYPOCHLORITE 0.125% 473ML SOLUTION TOP SCH ×2 (09:00→16:30)
[2022-01-02] MEDS: DOCUSATE SODIUM 100MG CAPSULE PO SCH ×2 (09:10→18:30)
[2022-01-02] MEDS: ENOXAPARIN 40MG/0.4ML SYR SUBCUT SCH (09:11)
[2022-01-02] MEDS: INSULIN GLARGINE 100 UNITS/ML SUBCUT SCH ×2 (12:06→22:47)
[2022-01-02] MEDS: MICAFUNGIN 150 MG in SODIUM CHLORIDE 0.9% 100 ML IV SCH (14:32)
[2022-01-02 16:00] VITALS: BP 118/82
[2022-01-02] MEDS: VANCOMYCIN 1G PREMIX 200 ML IV SCH (16:03)
[2022-01-02] MEDS: LACTULOSE 20G/30ML UDC PO PRN (18:30)
[2022-01-02 20:00] VITALS: BP 105/65
[2022-01-02] MEDS: MIRTAZAPINE 15MG TABLET PO SCH (22:14)
[2022-01-03] VITALS: BP 122/76
[2022-01-03 04:00] VITALS: BP 128/95
[2022-01-03] MEDS: AMPICILLIN 2,000 MG in SODIUM CHLORIDE 0.9% 100 ML IV SCH ×4 (04:24→21:41)
[2022-01-03] MEDS: INSULIN LISPRO 100 UNITS/ML SUBCUT SCH ×4 (07:18→22:42)
[2022-01-03] MEDS: BLOOD SUGAR DIAGNOSTIC STRIP TEST SCH ×4 (07:18→21:00)
[2022-01-03 08:00] VITALS: BP 109/75
[2022-01-03] MEDS: SODIUM HYPOCHLORITE 0.125% 473ML SOLUTION TOP SCH ×2 (09:59→16:56)
[2022-01-03] MEDS: ASCORBIC ACID 500 MG TABLET PO SCH (09:59)
[2022-01-03] MEDS: DOCUSATE SODIUM 100MG CAPSULE PO SCH ×2 (09:59→16:48)
[2022-01-03] MEDS: ENOXAPARIN 40MG/0.4ML SYR SUBCUT SCH (09:59)
[2022-01-03] MEDS: VANCOMYCIN 1G PREMIX 200 ML IV SCH (09:59)
[2022-01-03] MEDS: ZINC SULFATE 220 MG ( 50 ) CAPSULE PO SCH (09:59)
[2022-01-03] MEDS: INSULIN GLARGINE 100 UNITS/ML SUBCUT SCH ×2 (10:11→22:43)
[2022-01-03 12:00] VITALS: BP 114/80
[2022-01-03] MEDS: MICAFUNGIN 150 MG in SODIUM CHLORIDE 0.9% 100 ML IV SCH (13:08)
[2022-01-03 16:00] VITALS: BP 121/81
[2022-01-03 20:00] VITALS: BP 114/80
[2022-01-03] MEDS: LACTULOSE 20G/30ML UDC PO PRN (21:41)
[2022-01-03] MEDS: MIRTAZAPINE 15MG TABLET PO SCH (21:41)
[2022-01-04] VITALS: BP 127/87
[2022-01-04 04:00] VITALS: BP 118/74
[2022-01-04] MEDS: VANCOMYCIN 1G PREMIX 200 ML IV SCH ×2 (04:03→23:27)
[2022-01-04] MEDS: AMPICILLIN 2,000 MG in SODIUM CHLORIDE 0.9% 100 ML IV SCH ×4 (04:03→22:26)
[2022-01-04] MEDS: INSULIN LISPRO 100 UNITS/ML SUBCUT SCH ×4 (07:13→22:30)
[2022-01-04] MEDS: BLOOD SUGAR DIAGNOSTIC STRIP TEST SCH ×4 (07:13→21:00)
[2022-01-04 08:00] VITALS: BP 122/77
[2022-01-04] MEDS: SODIUM HYPOCHLORITE 0.125% 473ML SOLUTION TOP SCH ×2 (09:00→17:00)
[2022-01-04] MEDS: ZINC SULFATE 220 MG ( 50 ) CAPSULE PO SCH (09:16)
[2022-01-04] MEDS: ENOXAPARIN 40MG/0.4ML SYR SUBCUT SCH (09:16)
[2022-01-04] MEDS: DOCUSATE SODIUM 100MG CAPSULE PO SCH ×2 (09:16→17:02)
[2022-01-04] MEDS: ASCORBIC ACID 500 MG TABLET PO SCH (09:16)
[2022-01-04] MEDS: INSULIN GLARGINE 100 UNITS/ML SUBCUT SCH ×2 (09:23→22:31)
[2022-01-04 12:00] VITALS: BP 121/85
[2022-01-04] MEDS: MICAFUNGIN 150 MG in SODIUM CHLORIDE 0.9% 100 ML IV SCH (14:12)
[2022-01-04 16:00] VITALS: BP 125/95
[2022-01-04 21:00] LABS: BASOPHILS % 1.4 % (0.0-2.0); EOSINOPHILS % 6.7 % (0.0-5.0); HEMATOCRIT. 21.6 % (42.0-52.0); HEMOGLOBIN. 7.5 g/dL (14.0-18.0); LYMPHOCYTES % 33.6 % (20.0-50.0); MEAN CORPUSCULAR HEMOGLOBIN 28.7 pg (28.0-32.0); MEAN PLATELET VOLUME 8.5 fl (7.4-10.4); MONOCYTES % 11.3 % (2.0-8.0); PLATELET 375 x1000/uL (130-400); RED CELL DISTRIBUTION WIDTH 15.4 % (11.6-14.6)
[2022-01-04 21:31] LABS: CHLORIDE 106 mEq/L (98-107)
[2022-01-04] MEDS: MIRTAZAPINE 15MG TABLET PO SCH (22:26)
[2022-01-05] VITALS: BP 117/78
[2022-01-05] MEDS: AMPICILLIN 2,000 MG in SODIUM CHLORIDE 0.9% 100 ML IV SCH ×4 (03:23→23:19)
[2022-01-05 04:00] VITALS: BP 144/88
[2022-01-05 05:48] LABS: HEMOGLOBIN. 7.8 g/dL (14.0-18.0); MEAN CORPUSCULAR HEMOGLOBIN 27.9 pg (28.0-32.0); MEAN CORPUSCULAR VOLUME 81.8 fL (80.0-94.0); MEAN PLATELET VOLUME 8.8 fl (7.4-10.4); PLATELET 393 x1000/uL (130-400); RED BLOOD CELL COUNT 2.81 mill/uL (4.7-6.1); RED CELL DISTRIBUTION WIDTH 15.1 % (11.6-14.6)
[2022-01-05 05:51] LABS: CHLORIDE 108 mEq/L (98-107)
[2022-01-05] MEDS: BLOOD SUGAR DIAGNOSTIC STRIP TEST SCH ×4 (06:55→21:00)
[2022-01-05] MEDS: INSULIN LISPRO 100 UNITS/ML SUBCUT SCH ×4 (07:50→21:00)
[2022-01-05 08:00] VITALS: BP 124/79
[2022-01-05] MEDS: ENOXAPARIN 40MG/0.4ML SYR SUBCUT SCH (09:17)
[2022-01-05] MEDS: DOCUSATE SODIUM 100MG CAPSULE PO SCH ×2 (09:18→18:19)
[2022-01-05] MEDS: ZINC SULFATE 220 MG ( 50 ) CAPSULE PO SCH (09:18)
[2022-01-05] MEDS: SODIUM HYPOCHLORITE 0.125% 473ML SOLUTION TOP SCH ×2 (09:18→18:22)
[2022-01-05] MEDS: ASCORBIC ACID 500 MG TABLET PO SCH (09:18)
[2022-01-05] MEDS: INSULIN GLARGINE 100 UNITS/ML SUBCUT SCH ×2 (10:30→23:37)
[2022-01-05 12:00] VITALS: BP 132/83
[2022-01-05] MEDS: MICAFUNGIN 150 MG in SODIUM CHLORIDE 0.9% 100 ML IV SCH (12:21)
[2022-01-05 12:37] LABS: PLATELET ESTIMATE NORMAL
[2022-01-05 16:00] VITALS: BP 106/64
[2022-01-05] MEDS: VANCOMYCIN 1G PREMIX 200 ML IV SCH (16:00)
[2022-01-05] MEDS: ACETAMINOPHEN 325MG TABLET PO PRN (16:00)
[2022-01-05 20:00] VITALS: BP 119/87
[2022-01-05] MEDS: MIRTAZAPINE 15MG TABLET PO SCH (23:19)
[2022-01-06] VITALS: BP 116/84
[2022-01-06] MEDS: AMPICILLIN 2,000 MG in SODIUM CHLORIDE 0.9% 100 ML IV SCH ×4 (03:44→21:57)
[2022-01-06 04:00] VITALS: BP 124/82
[2022-01-06] MEDS: BLOOD SUGAR DIAGNOSTIC STRIP TEST SCH ×4 (06:52→21:58)
[2022-01-06] MEDS: INSULIN LISPRO 100 UNITS/ML SUBCUT SCH ×4 (07:50→21:00)
[2022-01-06 08:00] VITALS: BP 124/86
[2022-01-06] MEDS: VANCOMYCIN 1G PREMIX 200 ML IV SCH (08:57)
[2022-01-06] MEDS: DOCUSATE SODIUM 100MG CAPSULE PO SCH ×2 (08:57→17:47)
[2022-01-06] MEDS: ASCORBIC ACID 500 MG TABLET PO SCH (08:57)
[2022-01-06] MEDS: ZINC SULFATE 220 MG ( 50 ) CAPSULE PO SCH (08:57)
[2022-01-06] MEDS: SODIUM HYPOCHLORITE 0.125% 473ML SOLUTION TOP SCH ×2 (08:58→17:47)
[2022-01-06] MEDS: ENOXAPARIN 40MG/0.4ML SYR SUBCUT SCH (08:58)
[2022-01-06] MEDS: INSULIN GLARGINE 100 UNITS/ML SUBCUT SCH ×2 (10:00→21:59)
[2022-01-06 11:54] VITALS: BP 119/80
[2022-01-06] MEDS: MICAFUNGIN 150 MG in SODIUM CHLORIDE 0.9% 100 ML IV SCH (14:28)
[2022-01-06 16:00] VITALS: BP 122/86
[2022-01-06 20:00] VITALS: BP 131/84
[2022-01-06] MEDS: MIRTAZAPINE 15MG TABLET PO SCH (21:58)
[2022-01-07] VITALS: BP 118/80
[2022-01-07] MEDS: VANCOMYCIN 1G PREMIX 200 ML IV SCH ×2 (03:44→21:56)
[2022-01-07] MEDS: AMPICILLIN 2,000 MG in SODIUM CHLORIDE 0.9% 100 ML IV SCH ×4 (03:44→21:56)
[2022-01-07 04:00] VITALS: BP 127/92
[2022-01-07] MEDS: BLOOD SUGAR DIAGNOSTIC STRIP TEST SCH ×4 (06:20→21:56)
[2022-01-07 08:00] VITALS: BP 132/76
[2022-01-07] MEDS: ENOXAPARIN 40MG/0.4ML SYR SUBCUT SCH (08:42)
[2022-01-07] MEDS: ASCORBIC ACID 500 MG TABLET PO SCH (08:42)
[2022-01-07] MEDS: DOCUSATE SODIUM 100MG CAPSULE PO SCH ×2 (08:42→17:26)
[2022-01-07] MEDS: ZINC SULFATE 220 MG ( 50 ) CAPSULE PO SCH (08:42)
[2022-01-07] MEDS: SODIUM HYPOCHLORITE 0.125% 473ML SOLUTION TOP SCH ×2 (08:43→17:26)
[2022-01-07] MEDS: INSULIN LISPRO 100 UNITS/ML SUBCUT SCH ×4 (08:51→22:08)
[2022-01-07] MEDS: INSULIN GLARGINE 100 UNITS/ML SUBCUT SCH ×2 (09:38→22:08)
[2022-01-07 12:00] VITALS: BP 119/74
[2022-01-07] MEDS: MICAFUNGIN 150 MG in SODIUM CHLORIDE 0.9% 100 ML IV SCH (14:43)
[2022-01-07 16:00] VITALS: BP 123/64
[2022-01-07 20:00] VITALS: BP 127/88
[2022-01-07] MEDS: MIRTAZAPINE 15MG TABLET PO SCH (21:55)
[2022-01-08] VITALS: BP 115/71
[2022-01-08] MEDS: AMPICILLIN 2,000 MG in SODIUM CHLORIDE 0.9% 100 ML IV SCH ×4 (03:54→20:07)
[2022-01-08 04:00] VITALS: BP 131/89
[2022-01-08] MEDS: BLOOD SUGAR DIAGNOSTIC STRIP TEST SCH ×4 (05:58→20:14)
[2022-01-08] MEDS: INSULIN LISPRO 100 UNITS/ML SUBCUT SCH ×4 (07:50→20:23)
[2022-01-08] MEDS: SODIUM HYPOCHLORITE 0.125% 473ML SOLUTION TOP SCH ×2 (09:00→17:00)
[2022-01-08] MEDS: ZINC SULFATE 220 MG ( 50 ) CAPSULE PO SCH (09:44)
[2022-01-08] MEDS: DOCUSATE SODIUM 100MG CAPSULE PO SCH ×2 (09:44→17:35)
[2022-01-08] MEDS: ASCORBIC ACID 500 MG TABLET PO SCH (09:44)
[2022-01-08] MEDS: ENOXAPARIN 40MG/0.4ML SYR SUBCUT SCH (09:45)
[2022-01-08] MEDS: INSULIN GLARGINE 100 UNITS/ML SUBCUT SCH ×2 (10:00→20:23)
[2022-01-08] MEDS: MICAFUNGIN 150 MG in SODIUM CHLORIDE 0.9% 100 ML IV SCH (13:20)
[2022-01-08] MEDS: VANCOMYCIN 1G PREMIX 200 ML IV SCH (15:48)
[2022-01-08 20:00] VITALS: BP 125/63
[2022-01-08] MEDS: MIRTAZAPINE 15MG TABLET PO SCH (20:07)
[2022-01-09] VITALS: BP 119/85
[2022-01-09] MEDS: AMPICILLIN 2,000 MG in SODIUM CHLORIDE 0.9% 100 ML IV SCH ×4 (02:49→21:40)
[2022-01-09 04:00] VITALS: BP 130/94
[2022-01-09] MEDS: INSULIN LISPRO 100 UNITS/ML SUBCUT SCH ×4 (06:40→22:06)
[2022-01-09] MEDS: BLOOD SUGAR DIAGNOSTIC STRIP TEST SCH ×4 (06:40→21:39)
[2022-01-09 08:00] VITALS: BP 108/78
[2022-01-09] MEDS: ASCORBIC ACID 500 MG TABLET PO SCH (09:41)
[2022-01-09] MEDS: VANCOMYCIN 1G PREMIX 200 ML IV SCH (09:41)
[2022-01-09] MEDS: DOCUSATE SODIUM 100MG CAPSULE PO SCH ×2 (09:41→17:35)
[2022-01-09] MEDS: ZINC SULFATE 220 MG ( 50 ) CAPSULE PO SCH (09:41)
[2022-01-09] MEDS: ENOXAPARIN 40MG/0.4ML SYR SUBCUT SCH (09:42)
[2022-01-09] MEDS: SODIUM HYPOCHLORITE 0.125% 473ML SOLUTION TOP SCH ×2 (09:42→17:00)
[2022-01-09] MEDS: INSULIN GLARGINE 100 UNITS/ML SUBCUT SCH ×2 (11:24→22:04)
[2022-01-09 12:00] VITALS: BP 112/82
[2022-01-09] MEDS: MICAFUNGIN 150 MG in SODIUM CHLORIDE 0.9% 100 ML IV SCH (13:47)
[2022-01-09 16:00] VITALS: BP 117/81
[2022-01-09] MEDS: MIRTAZAPINE 15MG TABLET PO SCH (21:15)
[2022-01-09 22:24] VITALS: BP 124/70
[2022-01-10] VITALS: BP 121/81
[2022-01-10] MEDS: AMPICILLIN 2,000 MG in SODIUM CHLORIDE 0.9% 100 ML IV SCH ×4 (03:16→21:43)
[2022-01-10] MEDS: VANCOMYCIN 1G PREMIX 200 ML IV SCH ×2 (03:16→21:47)
[2022-01-10 04:00] VITALS: BP 126/83
[2022-01-10] MEDS: BLOOD SUGAR DIAGNOSTIC STRIP TEST SCH ×4 (06:56→21:52)
[2022-01-10] MEDS: INSULIN LISPRO 100 UNITS/ML SUBCUT SCH ×4 (06:57→21:52)
[2022-01-10 08:00] VITALS: BP 130/89
[2022-01-10] MEDS: DOCUSATE SODIUM 100MG CAPSULE PO SCH ×2 (08:59→18:19)
[2022-01-10] MEDS: SODIUM HYPOCHLORITE 0.125% 473ML SOLUTION TOP SCH ×2 (08:59→18:20)
[2022-01-10] MEDS: ZINC SULFATE 220 MG ( 50 ) CAPSULE PO SCH (08:59)
[2022-01-10] MEDS: ASCORBIC ACID 500 MG TABLET PO SCH (08:59)
[2022-01-10] MEDS: ENOXAPARIN 40MG/0.4ML SYR SUBCUT SCH (09:01)
[2022-01-10] MEDS: INSULIN GLARGINE 100 UNITS/ML SUBCUT SCH ×2 (09:05→21:53)
[2022-01-10 12:00] VITALS: BP 133/86
[2022-01-10] MEDS: MICAFUNGIN 150 MG in SODIUM CHLORIDE 0.9% 100 ML IV SCH (15:20)
[2022-01-10 16:00] VITALS: BP 118/84
[2022-01-10 20:00] VITALS: BP 134/94
[2022-01-10 20:24] LABS: HEMATOCRIT 24.1 % (42.0-52.0); HEMOGLOBIN 8.2 g/dL (14.0-18.0)
[2022-01-10] MEDS: MIRTAZAPINE 15MG TABLET PO SCH (21:43)
[2022-01-11] VITALS: BP 120/76
[2022-01-11] MEDS: AMPICILLIN 2,000 MG in SODIUM CHLORIDE 0.9% 100 ML IV SCH ×4 (03:12→21:18)
[2022-01-11 04:00] VITALS: BP 141/82
[2022-01-11] MEDS: BLOOD SUGAR DIAGNOSTIC STRIP TEST SCH ×4 (06:57→21:00)
[2022-01-11 08:00] VITALS: BP 144/107
[2022-01-11 08:29] LABS: CHLORIDE 107 mEq/L (98-107)
[2022-01-11] MEDS: SODIUM HYPOCHLORITE 0.125% 473ML SOLUTION TOP SCH ×2 (09:00→17:00)
[2022-01-11] MEDS: DOCUSATE SODIUM 100MG CAPSULE PO SCH ×2 (09:54→18:24)
[2022-01-11] MEDS: ZINC SULFATE 220 MG ( 50 ) CAPSULE PO SCH (09:54)
[2022-01-11] MEDS: ASCORBIC ACID 500 MG TABLET PO SCH (09:54)
[2022-01-11] MEDS: ENOXAPARIN 40MG/0.4ML SYR SUBCUT SCH (09:55)
[2022-01-11] MEDS: INSULIN LISPRO 100 UNITS/ML SUBCUT SCH ×4 (10:02→21:00)
[2022-01-11] MEDS: INSULIN GLARGINE 100 UNITS/ML SUBCUT SCH ×2 (10:14→22:00)
[2022-01-11 12:00] VITALS: BP 142/98
[2022-01-11] MEDS: MICAFUNGIN 150 MG in SODIUM CHLORIDE 0.9% 100 ML IV SCH (13:15)
[2022-01-11 16:00] VITALS: BP 130/89
[2022-01-11] MEDS: VANCOMYCIN 1G PREMIX 200 ML IV SCH (16:36)
[2022-01-11 20:00] VITALS: BP 124/84
[2022-01-11] MEDS: MIRTAZAPINE 15MG TABLET PO SCH (21:18)
[2022-01-12] VITALS: BP 140/88
[2022-01-12] MEDS: AMPICILLIN 2,000 MG in SODIUM CHLORIDE 0.9% 100 ML IV SCH ×4 (02:47→21:00)
[2022-01-12 04:00] VITALS: BP 132/64
[2022-01-12] MEDS: INSULIN LISPRO 100 UNITS/ML SUBCUT SCH ×4 (07:45→21:59)
[2022-01-12] MEDS: BLOOD SUGAR DIAGNOSTIC STRIP TEST SCH ×4 (07:45→21:00)
[2022-01-12 08:00] VITALS: BP 132/87
[2022-01-12] MEDS: VANCOMYCIN 1G PREMIX 200 ML IV SCH (08:57)
[2022-01-12] MEDS: DOCUSATE SODIUM 100MG CAPSULE PO SCH ×2 (08:57→17:31)
[2022-01-12] MEDS: ZINC SULFATE 220 MG ( 50 ) CAPSULE PO SCH (08:57)
[2022-01-12] MEDS: ASCORBIC ACID 500 MG TABLET PO SCH (08:57)
[2022-01-12] MEDS: ENOXAPARIN 40MG/0.4ML SYR SUBCUT SCH (08:58)
[2022-01-12] MEDS: SODIUM HYPOCHLORITE 0.125% 473ML SOLUTION TOP SCH ×2 (08:58→17:31)
[2022-01-12] MEDS: INSULIN GLARGINE 100 UNITS/ML SUBCUT SCH ×2 (09:16→22:13)
[2022-01-12 12:00] VITALS: BP 118/80
[2022-01-12] MEDS: MICAFUNGIN 150 MG in SODIUM CHLORIDE 0.9% 100 ML IV SCH (13:23)
[2022-01-12 16:00] VITALS: BP 122/83
[2022-01-12 20:00] VITALS: BP 113/82
[2022-01-12] MEDS: MIRTAZAPINE 15MG TABLET PO SCH (21:00)
[2022-01-13] VITALS: BP 111/64
[2022-01-13] MEDS: AMPICILLIN 2,000 MG in SODIUM CHLORIDE 0.9% 100 ML IV SCH ×4 (03:56→20:13)
[2022-01-13] MEDS: VANCOMYCIN 1G PREMIX 200 ML IV SCH (04:00)
[2022-01-13] MEDS: BLOOD SUGAR DIAGNOSTIC STRIP TEST SCH ×4 (07:20→22:30)
[2022-01-13] MEDS: INSULIN LISPRO 100 UNITS/ML SUBCUT SCH ×4 (07:50→22:39)
[2022-01-13 08:00] VITALS: BP 128/90
[2022-01-13] MEDS: ZINC SULFATE 220 MG ( 50 ) CAPSULE PO SCH (08:28)
[2022-01-13] MEDS: ASCORBIC ACID 500 MG TABLET PO SCH (08:28)
[2022-01-13] MEDS: DOCUSATE SODIUM 100MG CAPSULE PO SCH ×2 (08:28→17:47)
[2022-01-13] MEDS: SODIUM HYPOCHLORITE 0.125% 473ML SOLUTION TOP SCH ×2 (08:28→17:47)
[2022-01-13] MEDS: ENOXAPARIN 40MG/0.4ML SYR SUBCUT SCH (08:29)
[2022-01-13] MEDS: INSULIN GLARGINE 100 UNITS/ML SUBCUT SCH ×2 (10:35→22:30)
[2022-01-13 12:00] VITALS: BP 131/93
[2022-01-13] MEDS: MICAFUNGIN 150 MG in SODIUM CHLORIDE 0.9% 100 ML IV SCH (13:41)
[2022-01-13 16:00] VITALS: BP 121/83
[2022-01-13 19:54] VITALS: BP 121/87
[2022-01-13] MEDS: MIRTAZAPINE 15MG TABLET PO SCH (20:15)
[2022-01-13] MEDS: VANCOMYCIN 1GM PMX (XELLIA) 200 ML IV SCH (22:20)
[2022-01-14] VITALS: BP 130/81
[2022-01-14 04:00] VITALS: BP 121/82
[2022-01-14] MEDS: AMPICILLIN 2,000 MG in SODIUM CHLORIDE 0.9% 100 ML IV SCH ×4 (05:17→20:39)
[2022-01-14] MEDS: INSULIN LISPRO 100 UNITS/ML SUBCUT SCH ×4 (07:50→21:00)
[2022-01-14 08:00] VITALS: BP 122/91
[2022-01-14] MEDS: BLOOD SUGAR DIAGNOSTIC STRIP TEST SCH ×4 (08:01→21:00)
[2022-01-14 08:28] LABS: CHLORIDE 110 mEq/L (98-107)
[2022-01-14] MEDS: ASCORBIC ACID 500 MG TABLET PO SCH (09:23)
[2022-01-14] MEDS: SODIUM HYPOCHLORITE 0.125% 473ML SOLUTION TOP SCH ×2 (09:23→18:51)
[2022-01-14] MEDS: DOCUSATE SODIUM 100MG CAPSULE PO SCH ×2 (09:23→18:50)
[2022-01-14] MEDS: ZINC SULFATE 220 MG ( 50 ) CAPSULE PO SCH (09:23)
[2022-01-14] MEDS: ENOXAPARIN 40MG/0.4ML SYR SUBCUT SCH (09:25)
[2022-01-14] MEDS: INSULIN GLARGINE 100 UNITS/ML SUBCUT SCH ×2 (09:54→22:04)
[2022-01-14 12:00] VITALS: BP 109/84
[2022-01-14] MEDS: MICAFUNGIN 150 MG in SODIUM CHLORIDE 0.9% 100 ML IV SCH (14:00)
[2022-01-14] MEDS: VANCOMYCIN 1GM PMX (XELLIA) 200 ML IV SCH (15:02)
[2022-01-14 16:00] VITALS: BP 105/81
[2022-01-14 20:00] VITALS: BP 117/87
[2022-01-14] MEDS: MIRTAZAPINE 15MG TABLET PO SCH (20:38)
[2022-01-15] VITALS: BP 116/83
[2022-01-15] MEDS: AMPICILLIN 2,000 MG in SODIUM CHLORIDE 0.9% 100 ML IV SCH ×4 (02:38→21:40)
[2022-01-15 04:00] VITALS: BP 119/79
[2022-01-15] MEDS: BLOOD SUGAR DIAGNOSTIC STRIP TEST SCH ×4 (07:20→21:39)
[2022-01-15] MEDS: INSULIN LISPRO 100 UNITS/ML SUBCUT SCH ×4 (07:50→21:52)
[2022-01-15 08:00] VITALS: BP 124/82
[2022-01-15] MEDS: ASCORBIC ACID 500 MG TABLET PO SCH (09:20)
[2022-01-15] MEDS: DOCUSATE SODIUM 100MG CAPSULE PO SCH ×2 (09:20→17:58)
[2022-01-15] MEDS: ENOXAPARIN 40MG/0.4ML SYR SUBCUT SCH (09:20)
[2022-01-15] MEDS: ZINC SULFATE 220 MG ( 50 ) CAPSULE PO SCH (09:20)
[2022-01-15] MEDS: SODIUM HYPOCHLORITE 0.125% 473ML SOLUTION TOP SCH ×2 (09:21→17:59)
[2022-01-15] MEDS: INSULIN GLARGINE 100 UNITS/ML SUBCUT SCH ×2 (10:27→21:52)
[2022-01-15 12:00] VITALS: BP 123/79
[2022-01-15] MEDS: VANCOMYCIN 1GM PMX (XELLIA) 200 ML IV SCH (12:06)
[2022-01-15] MEDS: MICAFUNGIN 150 MG in SODIUM CHLORIDE 0.9% 100 ML IV SCH (15:57)
[2022-01-15 16:00] VITALS: BP 117/82
[2022-01-15 20:00] VITALS: BP 113/78
[2022-01-15] MEDS: MIRTAZAPINE 15MG TABLET PO SCH (21:40)
[2022-01-16] VITALS: BP 119/86
[2022-01-16] MEDS: AMPICILLIN 2,000 MG in SODIUM CHLORIDE 0.9% 100 ML IV SCH ×4 (02:08→20:50)
[2022-01-16] MEDS: VANCOMYCIN 1GM PMX (XELLIA) 200 ML IV SCH ×2 (02:08→20:50)
[2022-01-16 04:00] VITALS: BP 122/82
[2022-01-16] MEDS ORDERED: DEXTROSE 50% WATER 50ML SYRINGE IV PRN (07:45)
[2022-01-16] MEDS: INSULIN LISPRO 100 UNITS/ML SUBCUT SCH ×4 (07:50→21:08)
[2022-01-16 08:00] VITALS: BP 102/66
[2022-01-16] MEDS: ZINC SULFATE 220 MG ( 50 ) CAPSULE PO SCH (08:45)
[2022-01-16] MEDS: ENOXAPARIN 40MG/0.4ML SYR SUBCUT SCH (08:45)
[2022-01-16] MEDS: ASCORBIC ACID 500 MG TABLET PO SCH (08:45)
[2022-01-16] MEDS: DOCUSATE SODIUM 100MG CAPSULE PO SCH ×2 (08:45→17:46)
[2022-01-16] MEDS: SODIUM HYPOCHLORITE 0.125% 473ML SOLUTION TOP SCH ×2 (08:45→17:46)
[2022-01-16] MEDS: INSULIN GLARGINE 100 UNITS/ML SUBCUT SCH (09:28)
[2022-01-16 12:00] VITALS: BP 115/72
[2022-01-16] MEDS: BLOOD SUGAR DIAGNOSTIC STRIP TEST SCH ×3 (13:10→20:49)
[2022-01-16] MEDS: MICAFUNGIN 150 MG in SODIUM CHLORIDE 0.9% 100 ML IV SCH (13:11)
[2022-01-16 16:00] VITALS: BP 116/81
[2022-01-16 20:00] VITALS: BP 120/60
[2022-01-16] MEDS: MIRTAZAPINE 15MG TABLET PO SCH (20:50)
[2022-01-17] VITALS: BP 116/59
[2022-01-17] MEDS: AMPICILLIN 2,000 MG in SODIUM CHLORIDE 0.9% 100 ML IV SCH ×3 (02:37→14:48)
[2022-01-17 04:00] VITALS: BP 112/58
[2022-01-17] MEDS: BLOOD SUGAR DIAGNOSTIC STRIP TEST SCH ×2 (06:42→12:20)
[2022-01-17] MEDS: SODIUM HYPOCHLORITE 0.125% 473ML SOLUTION TOP SCH (09:00)
[2022-01-17] MEDS: DOCUSATE SODIUM 100MG CAPSULE PO SCH (09:26)
[2022-01-17] MEDS: ZINC SULFATE 220 MG ( 50 ) CAPSULE PO SCH (09:26)
[2022-01-17] MEDS: ENOXAPARIN 40MG/0.4ML SYR SUBCUT SCH (09:26)
[2022-01-17] MEDS: ASCORBIC ACID 500 MG TABLET PO SCH (09:26)
[2022-01-17] MEDS: INSULIN LISPRO 100 UNITS/ML SUBCUT SCH ×2 (09:36→12:34)
[2022-01-17 12:15] VITALS: BP 135/100
[2022-01-17] MEDS ORDERED: CLONIDINE 0.1MG TABLET PO NR (12:45)
[2022-01-17 13:18] VITALS: BP 119/83
[2022-01-17] MEDS: MICAFUNGIN 150 MG in SODIUM CHLORIDE 0.9% 100 ML IV SCH (13:39)
== END 2022-01-17 16:16 | DRG 710 ==
LOC: ER 18:18 → MICUSO 21:50 → 8WST 12-19 02:49 → 6EST 01-01 13:24
PROVIDERS: ADMIT Internal Medicine; ATTEND Internal Medicine
PROC: 0KBN0ZZ Excision of Right Hip Muscle, Open Approach (ICD-10-PCS; principal; 2021-12-25)
PROC: 0KBP0ZZ Excision of Left Hip Muscle, Open Approach (ICD-10-PCS; 2021-12-25)
PROC: 02HV33Z Insertion of Infusion Device into Superior Vena Cava, Percutaneous Approach (ICD-10-PCS; 2021-12-26)
PROC: B518ZZA Fluoroscopy of Superior Vena Cava, Guidance (ICD-10-PCS; 2021-12-26)
PROC: B548ZZA Ultrasonography of Superior Vena Cava, Guidance (ICD-10-PCS; 2021-12-26)
PROC: 0KBP0ZZ Excision of Left Hip Muscle, Open Approach (ICD-10-PCS; 2021-12-31)
PROC: 0KBN0ZZ Excision of Right Hip Muscle, Open Approach (ICD-10-PCS; 2021-12-31)
PROC: 0KBP0ZZ Excision of Left Hip Muscle, Open Approach (ICD-10-PCS; 2022-01-08)
PROC: 0KBN0ZZ Excision of Right Hip Muscle, Open Approach (ICD-10-PCS; 2022-01-08)
PROC: 0KBP0ZZ Excision of Left Hip Muscle, Open Approach (ICD-10-PCS; 2022-01-15)
PROC: 0KBN0ZZ Excision of Right Hip Muscle, Open Approach (ICD-10-PCS; 2022-01-15)
DX: A41.9 Sepsis, unspecified organism (principal); R65.21 Severe sepsis with septic shock; G93.41 Metabolic encephalopathy; E43 Unspecified severe protein-calorie malnutrition; E11.10 Type 2 diabetes mellitus with ketoacidosis without coma; B49 Unspecified mycosis; N17.9 Acute kidney failure, unspecified; L89.94 Pressure ulcer of unspecified site, stage 4; I38 Endocarditis, valve unspecified; J18.9 Pneumonia, unspecified organism; E87.8 Other disorders of electrolyte and fluid balance, not elsewhere classified; D64.9 Anemia, unspecified; E87.1 Hypo-osmolality and hyponatremia; I10 Essential (primary) hypertension; B96.1 Klebsiella pneumoniae [K. pneumoniae] as the cause of diseases classified elsewhere; B86 Scabies; Z20.822 Contact with and (suspected) exposure to COVID-19; F32.9 Major depressive disorder, single episode, unspecified; R74.01 Elevation of levels of liver transaminase levels; F32.A Depression, unspecified; K59.00 Constipation, unspecified; Z79.4 Long term (current) use of insulin; Z79.899 Other long term (current) drug therapy; Z68.1 Body mass index [BMI] 19.9 or less, adult
CPT/HCPCS: 36415; 36573; 71045; 80048; 80053; 80202; 80305; 80320; 81003; 82010; 82040; 82962; 83036; 83605; 84134; 84145; 84484; 85014; 85018; 85025; 85027; 87070; 87077; 87106; 87186; 87426; 93005; 93306; 99291; C1725; C1769; C1893; J0290; J0692; J1650; J1815; J2185; J2248; J2270; J2543; J3370; J3490; J7030; J7040; J7050; J7060; G0480